=== PATIENT | female | born 1950 | race Caucasian/White ===

== ENCOUNTER 2024-01-10 12:53 | Outpatient (RCR) | payer MEDICARE, OTHER, SELFPAY | END 2024-01-10 23:59 | disposition home or self-care (01) | LOC: RPT 12:53 | PROVIDERS: ATTENDING PHYSICIAN Internal Medicine Geriatric Medicine | DX: I97.2 Postmastectomy lymphedema syndrome (principal); M25.612 Stiffness of left shoulder, not elsewhere classified; Z73.6 Limitation of activities due to disability; C50.912 Malignant neoplasm of unspecified site of left female breast | CPT/HCPCS: 97140; 97530 ==

== ENCOUNTER → 2024-01-18 12:18 | Outpatient (REF) | payer MEDICARE, OTHER, SELFPAY | LOC: RAD 12:18 | PROVIDERS: ATTENDING PHYSICIAN Internal Medicine Geriatric Medicine | DX: M25.572 Pain in left ankle and joints of left foot (principal) | CPT/HCPCS: 73630 ==

== ENCOUNTER 2024-02-04 14:40 | Outpatient (RCR) | payer MEDICARE, OTHER, SELFPAY | END 2024-02-04 23:59 | disposition home or self-care (01) | LOC: RPT 14:40 | PROVIDERS: ATTENDING PHYSICIAN Internal Medicine Geriatric Medicine | DX: I97.2 Postmastectomy lymphedema syndrome (principal); M25.612 Stiffness of left shoulder, not elsewhere classified; C50.912 Malignant neoplasm of unspecified site of left female breast; C79.51 Secondary malignant neoplasm of bone; Z73.6 Limitation of activities due to disability | CPT/HCPCS: 97140; 97530 ==

== ENCOUNTER 2024-03-17 15:14 | Outpatient (RCR) | payer MEDICARE, OTHER, SELFPAY | END 2024-03-17 23:59 | disposition home or self-care (01) | LOC: RPT 15:14 | PROVIDERS: ATTENDING PHYSICIAN Internal Medicine Geriatric Medicine | DX: I97.2 Postmastectomy lymphedema syndrome (principal); M25.612 Stiffness of left shoulder, not elsewhere classified; C50.912 Malignant neoplasm of unspecified site of left female breast; C79.51 Secondary malignant neoplasm of bone; R26.81 Unsteadiness on feet; Z73.6 Limitation of activities due to disability; M79.602 Pain in left arm; G62.9 Polyneuropathy, unspecified; L60.5 Yellow nail syndrome | CPT/HCPCS: 97112; 97530 ==

== ENCOUNTER → 2024-03-28 13:58 | Outpatient (REF) | payer MEDICARE, OTHER, SELFPAY | LOC: HWRCS 13:58 | PROVIDERS: ATTENDING PHYSICIAN Internal Medicine Cardiovascular Disease; FAMILY PHYSICIAN Internal Medicine Geriatric Medicine | DX: I25.10 Atherosclerotic heart disease of native coronary artery without angina pectoris (principal) | CPT/HCPCS: 93306 ==

== ENCOUNTER 2024-04-26 14:52 | Outpatient (RCR) | payer MEDICARE, OTHER, SELFPAY | END 2024-04-26 23:59 | disposition home or self-care (01) | LOC: RPT 14:52 | PROVIDERS: ATTENDING PHYSICIAN Internal Medicine Geriatric Medicine | DX: I97.2 Postmastectomy lymphedema syndrome (principal); M25.612 Stiffness of left shoulder, not elsewhere classified; C50.912 Malignant neoplasm of unspecified site of left female breast; C79.51 Secondary malignant neoplasm of bone; Z73.6 Limitation of activities due to disability | CPT/HCPCS: 97112; 97140; 97530 ==

== ENCOUNTER 2024-05-26 13:52 | Outpatient (RCR) | payer MEDICARE, OTHER, SELFPAY | END 2024-05-26 23:59 | disposition home or self-care (01) | LOC: RPT 13:52 | PROVIDERS: ATTENDING PHYSICIAN Internal Medicine Geriatric Medicine | DX: I97.2 Postmastectomy lymphedema syndrome (principal); M25.612 Stiffness of left shoulder, not elsewhere classified; C50.912 Malignant neoplasm of unspecified site of left female breast; C79.51 Secondary malignant neoplasm of bone; Z73.6 Limitation of activities due to disability | CPT/HCPCS: 97112; 97140; 97530 ==

== ENCOUNTER 2024-05-26 17:59 | Emergency (ER) | payer MEDICARE, OTHER, SELFPAY ==
[2024-05-26 18:02] VITALS: BP 135/74
[2024-05-26 18:43] LABS: % Basophils 0.8 % (0-2); % Eosinophils 8.5 % (0-6); % Immature Granulocytes 0.2 % (0-0.5); % Lymphocytes 23.2 % (20.5-51.1); % Monocytes 8.9 % (1.7-9.3); % Neutrophils 58.4 % (42.2-75.2); Absolute Basophils 0.1 10^3/uL (0-0.2); Absolute Eosinophils 0.7 10^3/uL (0-0.7); Absolute Monocytes 0.8 10^3/uL (0.1-0.6); Absolute Neutrophils 4.9 10^3/uL (1.4-6.5); Hematocrit 36.2 % (37.0-47.0); Hemoglobin 11.7 g/dL (12.0-16.0); Mean Corp Hgb Conc. 32.3 g/dL (33.0-37.0); Mean Corpuscular Hgb 29.3 pg (27.0-31.0); Mean Corpuscular Volume 90.5 fL (81.0-99.0); Mean Platelet Volume 9.6 fL (7.4-10.4); Nucleated Red Blood Cells % 0.2 %; Platelet Count 602 10^3/uL (130-400); Red Cell Dist. Width 17.8 % (11.5-14.5); White Blood Cell Count 8.5 10^3/uL (4.8-10.8)
[2024-05-26 18:44] LABS: ALT (SGPT) 16 U/L (0-35); AST (SGOT) 24 U/L (14-36); Albumin 4.3 g/dl (3.5-5.0); Alkaline Phosphatase 56 U/L (38-126); Blood Urea Nitrogen 30 mg/dl (7-17); Calcium 9.4 mg/dl (8.4-10.2); Carbon Dioxide 33 mmol/L (22-30); Chloride 100 mmol/L (98-107); Glucose 88 mg/dl (70-99); Potassium 4.2 mmol/L (3.5-5.1); Sodium 138 mmol/L (135-145); Total Bilirubin 0.4 mg/dl (0.2-1.3); Total Protein 7.1 g/dl (6.3-8.2); eGFR 58.75
[2024-05-26 18:52] LABS: Troponin I < 0.012 ng/ml
--- NOTE | 2024-05-26 19:28 | ED.GENMED ---
History of Present Illness
General
Chief Complaint: Eye Problems
Time Seen by Provider: 05/26/24 19:28
History of Present Illness
History of Present Illness:
HPI: Approximately 30 hours ago, the patient had distorted vision when looking to the right side as well as double vision. She seemed to have some trouble walking yesterday as well. This morning, symptoms have resolved and she has not had any
further symptoms. She was encouraged to come to emergency department by her friends. She has a history of metastatic breast cancer and chronically has neuropathic discomfort primarily to the left upper along with tremor. She is on gabapentin and
propranolol which does not help. She has seen Dr. Wayne related to tremor.
EXAM:
GENERAL: Well appearing in no distress
HEENT: Moist oral mucosa
CARDIOVASCULAR: 2 out of 6 systolic murmur, normal heart rate, regular rhythm, No chest wall tenderness
PULMONARY: No respiratory distress, breath sounds are clear and equal
ABDOMEN: Soft with no peritoneal signs, no tenderness
NEUROLOGIC: Excellent strength all extremities, no coordination deficits, there is no disconjugate gaze, there is some tremor to the left upper extremity which is chronic
PSYCHIATRIC: Appropriate mental status, normal insight and judgement
EXTREMITIES: Nontender, some edema to the left upper extremity which is chronic, moves all extremities equally
SKIN: No rash, no lesions
TIME OF INITIAL ENCOUNTER: 8:25 PM
NUMBER AND COMPLEXITY OF PROBLEMS ADDRESSED AT THE ENCOUNTER
� Chronic conditions affecting care: Breast cancer with mets to the lung, asthma, sleep apnea, thrombocytosis
� Acute Exacerbation and/or Progression of Chronic Illness: This is an acute problem
� Differential Diagnosis includes: TIA, intracranial lesion, dysrhythmia, electrolyte abnormality
AMOUNT AND/OR COMPLEXITY OF DATA TO BE REVIEWED AND ANALYZED
� I performed an independent evaluation of and my interpretation is:
EKG: Sinus 75, left axis deviation, RSR' pattern new from 2004
CT: I personally reviewed CT imaging and agree with radiologist interpretation there is no acute abnormality
X-rays:
Laboratory Studies: White count 8.5, hemoglobin slight low 11.7, platelets 602, bicarb 33, BUN 30, troponin negative
Other:
� Review of other/old records: Old records show that the patient has treated here with physical therapy further postmastectomy lymphedema syndrome
� Clinical information was obtained by an independent historian: I spoke to the at bedside
� Prescriptions/Medications Considered but not given:
� Further testing considered but not performed:
RISK OF COMPLICATIONS AND/OR MORBIDITY OR MORTALITY OF PATIENT MANAGEMENT
� Social determinants of health affecting care: Lives at home
� Discussion with other providers:
� Escalation of care including admission/observation vs risk of discharge considered: Unclear etiology of patient's distorted vision yesterday. Currently there is no disconjugate gaze. She has a normal neurologic examination
with exception of chronic tremor to the left upper extremity. I offered and considered keeping her here in the hospital for further evaluation however she adamantly prefers going home which I feel is reasonable. She already takes aspirin.
Past History
Past History
ED Past Medical History: Cancer (Breast) and HTN
Social History
Tobacco: Non-smoker
Alcohol: None
Phy Exam
Physical Exam
Physical Exam:
See HPI
Course
Orders/Labs/Results
Orders:
Orders
05/26/24 18:06
ECG [Electrocardiogram (*1)] Urgent
Reason for Study: Vertigo / Dizzy
CT Head W/o Iv Contrast Urgent
Comment:
Reason For Exam: double vision
EKG- Treatment ONCE
05/26/24 18:13
Complete Blood Count/With Diff Urgent
Comprehensive Metabolic Panel Urgent
Troponin I Urgent
Abnormal Lab Results
05/26/24
18:13
RBC 4.00 L 10^6/uL
(4.20-5.40)
Hgb 11.7 L g/dL
(12.0-16.0)
Hct 36.2 L %
(37.0-47.0)
MCHC 32.3 L g/dL
(33.0-37.0)
RDW 17.8 H %
(11.5-14.5)
Plt Count 602 H 10^3/uL
(130-400)
Absolute Monos (auto) 0.8 H 10^3/uL
(0.1-0.6)
Eosinophils % 8.5 H %
(0-6)
Carbon Dioxide 33 H mmol/L
(22-30)
BUN 30 H mg/dl
(7-17)
05/26/24 18:13
05/26/24 18:13
Vital Signs
Initial and Last Documented VS:
Initial Vital Signs
Temp Pulse Resp BP Pulse Ox
98.3 F 81 20 135/74 99
05/26/24 18:02 05/26/24 18:02 05/26/24 18:02 05/26/24 18:02 05/26/24 18:02
Last Documented Vital Signs
Temp Pulse Resp BP Pulse Ox
98.3 F 73 16 130/74 99
05/26/24 18:02 05/26/24 20:02 05/26/24 20:02 05/26/24 20:00 05/26/24 20:02
*Critical Care Note
Total Time (30-74mins, 75-104mins- exclusive of procedures): Not Applicable
ED Attending Note
-
Portions of this chart may have been created with voice recognition software.� Occasional wrong word or��sound alike� substitutions may have occurred due to the inherent limitations of voice recognition software.
Discharge Plan
Departure
Prescriptions:
No Action
cephalexin 500 MG capsule
500 mg PO QID Qty: 28 0RF
Referrals:
Dimitrios Brasher MD [Family Provider] -
Interventions
Interventions:
*Risk Screen - Suicide Last Done: 05/26/24 18:02
*General Assessment Last Done: 05/26/24 18:02
*Neglect/Abuse Screening Last Done: 05/26/24 18:02
ED- Fall Risk Assessment Last Done: 05/26/24 20:03
*ED COVID-19 Vaccine History Last Done: 05/26/24 20:03
Discharge Date and Time
Print Language: PALAUAN
[2024-05-26 20:00] VITALS: BP 130/74
== END 2024-05-26 20:57 | disposition home or self-care (01) ==
LOC: EMR 17:59
PROVIDERS: Emergency Medicine; EMERGENCY PHYSICIAN Emergency Medicine; FAMILY PHYSICIAN Internal Medicine Geriatric Medicine
DX: H53.8 Other visual disturbances (principal); H53.2 Diplopia; R26.2 Difficulty in walking, not elsewhere classified; R42 Dizziness and giddiness; R25.1 Tremor, unspecified; R01.1 Cardiac murmur, unspecified; J45.909 Unspecified asthma, uncomplicated; G47.30 Sleep apnea, unspecified; I10 Essential (primary) hypertension; D75.839 Thrombocytosis, unspecified; C78.00 Secondary malignant neoplasm of unspecified lung; Z85.3 Personal history of malignant neoplasm of breast; Z79.899 Other long term (current) drug therapy; Z79.82 Long term (current) use of aspirin; Z88.8 Allergy status to other drugs, medicaments and biological substances
CPT/HCPCS: 99284; 70450; 80053; 84484; 85025; 93005

== ENCOUNTER 2024-06-09 15:25 | Outpatient (RCR) | payer MEDICARE, OTHER, SELFPAY | END 2024-06-09 23:59 | disposition home or self-care (01) | LOC: RPT 15:25 | PROVIDERS: ATTENDING PHYSICIAN Internal Medicine Geriatric Medicine | DX: I97.2 Postmastectomy lymphedema syndrome (principal); M25.612 Stiffness of left shoulder, not elsewhere classified; M26.81 Anterior soft tissue impingement; C50.912 Malignant neoplasm of unspecified site of left female breast; M79.602 Pain in left arm; C79.51 Secondary malignant neoplasm of bone; Z73.6 Limitation of activities due to disability; G62.9 Polyneuropathy, unspecified; L90.5 Scar conditions and fibrosis of skin | CPT/HCPCS: 97140; 97530 ==

== ENCOUNTER 2024-07-21 14:46 | Outpatient (RCR) | payer MEDICARE, OTHER, SELFPAY | END 2024-07-21 23:59 | disposition home or self-care (01) | LOC: RPT 14:46 | PROVIDERS: ATTENDING PHYSICIAN Internal Medicine Geriatric Medicine | DX: I97.2 Postmastectomy lymphedema syndrome (principal); M25.612 Stiffness of left shoulder, not elsewhere classified; C50.912 Malignant neoplasm of unspecified site of left female breast; C79.51 Secondary malignant neoplasm of bone; Z73.6 Limitation of activities due to disability; R26.81 Unsteadiness on feet; M79.602 Pain in left arm; G62.9 Polyneuropathy, unspecified; L90.5 Scar conditions and fibrosis of skin | CPT/HCPCS: 97140; 97530 ==

== ENCOUNTER 2024-08-01 19:24 | Inpatient (IN) | payer MEDICARE, OTHER, SELFPAY ==
[2024-08-01] VITALS (8 sets, daily range): BP systolic 105–140; BP diastolic 59–103; BMI 29.4
[2024-08-01 13:09] LABS: Glucose - Point of Care 116 mg/dl (70-99)
--- NOTE | 2024-08-01 13:36 | ED.CVA ---
History of Present Illness
General
Chief Complaint: CVA/TIA Symptoms
Time Seen by Provider: 08/01/24 13:13
Onset of Stroke Symptoms
Onset of symptoms known: Yes
Date of onset of symptoms: 08/01/24
History of Present Illness
History of Present Illness:
Patient is a 73-year-old woman with history of metastatic breast cancer with mets to the bone and liver, hypertension, hyperlipidemia presenting to the emergency department with dizziness and vision problems. Patient states that she woke up this
morning off balance. This happened to her before which usually resolves with Dramamine. However today it persisted. She then had another vision and some slurring of her speech. She initially told nursing developed she is having difficulty with
her words however denied that for me. She states that she has had doubel vision before as well as neuropathy in extremities for several had an MRI done. She denies any numbness tingling that is new. No weakness yet. She does take a daily pill
for chemotherapy.
Past History
Past History
ED Past Medical History: Cancer (Breast) and HTN
Social History
Tobacco: Non-smoker
Alcohol: None
Phy Exam
Physical Exam
Physical Exam:
GENERAL: in no acute distress
HEENT: normocephalic, extraocular movements intact, moist oral mucosa
NECK: normal inspection
RESPIRATORY: no respiratory distress, clear to auscultation bilaterally
CARDIOVASCULAR: regular rate and rhythm
ABDOMEN/: soft, non-distended, non-tender to palpation, no rebound or guarding
EXTREMITIES: non-tender, no edema/swelling
NEUROLOGIC: alert and oriented x 3, cranial nerves II-XII intact, right upper extremity strength 5/5, left upper extremity strength 5/5, right lower extremity strength 5/5, left lower extremity strength 5/5, normal sensation to light touch
(decreased to the left arm secondary to lymphedema which is chronic), normal [id number] and [id number], gait not tested formally
SKIN: warm
NIH Stroke Score
Level of Consciousness: 0 - Alert
LOC questions: 0-Answers both correctly
LOC Commands: 0-Performs both correctly
Best Gaze: 0-Normal
Visual Nielson: 0=Normal, no visual loss
Facial palsy: 0=Normal, symmetrical
Motor - Right Arm: 0=No drift 10 seconds
Motor - Left Arm: 0=No drift 10 seconds
Motor - Right Le-No drift 5 seconds
Motor - Left Le-No drift 5 seconds
Limb Ataxia: 0-Absent
Sensation: 0-Normal
Best Language: 0-No aphasia
Dysarthria: 0-Normal
Extinction and Inattention: 0-No abnormality
Total Score:: 0
Course
Orders/Labs/Results
Orders:
Orders
08/01/24 13:30
Electrocardiogram (*1) Stat
Reason for Study: Other
Other Reason for Exam: neuro symptoms
CT Head W/o Iv Contrast Urgent
Comment:
Reason For Exam: ataxia, dysarthria
EKG- Treatment ONCE
08/01/24 13:51
Complete Blood Count/With Diff Urgent
Comprehensive Metabolic Panel Urgent
Abnormal Lab Results
08/01/24 08/01/24
13:08 13:51
RBC 3.70 L 10^6/uL
(4.20-5.40)
Hgb 11.9 L g/dL
(12.0-16.0)
Hct 34.2 L %
(37.0-47.0)
MCH 32.2 H pg
(27.0-31.0)
RDW 14.9 H %
(11.5-14.5)
Absolute Monos (auto) 0.7 H 10^3/uL
(0.1-0.6)
Monocytes % 9.4 H %
(1.7-9.3)
Eosinophils % 6.1 H %
(0-6)
Carbon Dioxide 33 H mmol/L
(22-30)
BUN 33 H mg/dl
(7-17)
POC Glucose 116 H mg/dl
(70-99)
08/01/24 13:51
08/01/24 13:51
Vital Signs
Initial and Last Documented VS:
Initial Vital Signs
Temp Pulse Resp BP Pulse Ox
98.3 F 77 16 134/103 97
08/01/24 13:06 08/01/24 13:06 08/01/24 13:06 08/01/24 13:06 08/01/24 13:06
Last Documented Vital Signs
Temp Pulse Resp BP Pulse Ox
98.3 F 71 20 126/67 93
08/01/24 13:06 08/01/24 16:45 08/01/24 16:45 08/01/24 16:00 08/01/24 16:45
MDM/Problems Addressed
Differential Diagnosis Includes:
Patient is a 73-year-old woman with history of metastatic breast cancer, hypertension, hyperlipidemia presenting to the emergency department dizziness and vision changes and concerns rate. Started when she woke up this morning.. Last known normal
was yesterday evening. Vitals are unremarkable and exam does not show any neurodeficits. Differential is broad but considered as CVA versus electrolyte derangement versus worsening metastases. Will obtain blood work EKG and CT scan. She will
need admission for further imaging and testing.
*Critical Care Note
Total Time (30-74mins, 75-104mins- exclusive of procedures): Not Applicable
Update Note
Update Note:
On reevaluation patient blood work unremarkable. CT scan of the head per my interpretation with no acute abnormality. Discussed with hospitalist who accepted patient to their service.
ED Attending Note
-
Portions of this chart may have been created with voice recognition software.� Occasional wrong word or��sound alike� substitutions may have occurred due to the inherent limitations of voice recognition software.
Discharge Plan
Departure
Patient Disposition: Admit
Date of Disposition: 08/01/24
Time of Disposition: 16:54
Presentation/result/management discussed w/ accepting MD/DO: Hospitalist
Discharge Problem:
Stroke-like symptoms
Prescriptions:
No Action
hydroxyurea 500 mg capsule
500 mg PO DAILY
clonazepam 0.5 mg tablet
0.5 mg PO DAILYPRN PRN (Reason: anxiety)
Patient Comments:
08/01/2024: last filled 06/02/24, 30 tabs for 30 days from [email or web address]
lidocaine-prilocaine 2.5-2.5 % cream
1 applic topical DAILYPRN PRN (Reason: prior to port access)
gabapentin 300 mg capsule
900 mg PO BID
zolpidem 12.5 mg tablet,ext release multiphase
12.5 mg PO HS
Patient Comments:
08/01/2024: last filled 07/13/24, 30 tabs for 30 days from [email or web address]
desvenlafaxine succinate 100 mg tablet extended release 24 hr
100 mg PO DAILY
Orserdu 345 mg tablet
345 mg PO QPM
propranolol 80 mg capsule,extended release 24 hr
80 mg PO DAILY
atorvastatin 20 mg tablet
20 mg PO DAILY
prochlorperazine maleate 5 mg tablet
5 mg PO Q6HPRN PRN (Reason: nausea)
Theragen Tablet
1 tab PO DAILY
aspirin 81 mg Tablet,Delayed Release (Dr/Ec)
81 mg PO DAILY
cevimeline 30 mg capsule
30 mg PO DAILY
hydrochlorothiazide 25 mg tablet
25 mg PO DAILY
azelastine 137 mcg (0.1 %) [place],Non-Aerosol
1 spray INTRANASAL DAILYPRN PRN (Reason: congestion)
albuterol sulfate 90 mcg/actuation Hfa Aerosol Inhaler
2 puff INHALATION R Q4HPRN PRN (Reason: sob/wheezing)
fluticasone propionate [Flonase] 50 mcg/actuation [place],Suspension
1 spray INTRANASAL DAILYPRN PRN (Reason: allergies/congestion)
simethicone 80 mg Tablet,Chewable
80 mg PO DAILYPRN PRN (Reason: gas)
bupropion HCl 300 mg Tablet Extended Release 24 Hr
300 mg PO DAILY
fenofibrate nanocrystallized 48 mg tablet
48 mg PO DAILY
fluticasone propion-salmeterol [Advair HFA] 115-21 mcg/actuation Hfa Aerosol Inhaler
2 puff INHALATION R DAILY
cholecalciferol (vitamin D3) 50 mcg (2,000 unit) Tablet
50 mcg PO DAILY
Referrals:
Dimitrios Brasher MD [Family Provider] -
Interventions
Interventions:
*Risk Screen - Suicide Last Done: 08/01/24 14:13
*General Assessment Last Done: 08/01/24 14:13
*Neglect/Abuse Screening Last Done: 08/01/24 14:13
*ED COVID-19 Vaccine History Last Done: 08/01/24 14:13
ED- Pulmonary Assessment Last Done: 08/01/24 13:26
ED- Neurological Assessment Last Done: 08/01/24 13:30
ED- Cardiac Assessment Last Done: 08/01/24 13:26
Discharge Date and Time
Print Language: NICARAGUAN
[2024-08-01 14:13] LABS: % Basophils 0.5 % (0-2); % Eosinophils 6.1 % (0-6); % Immature Granulocytes 0.3 % (0-0.5); % Lymphocytes 25.7 % (20.5-51.1); % Monocytes 9.4 % (1.7-9.3); Absolute Eosinophils 0.5 10^3/uL (0-0.7); Absolute Monocytes 0.7 10^3/uL (0.1-0.6); Absolute Neutrophils 4.6 10^3/uL (1.4-6.5); Hematocrit 34.2 % (37.0-47.0); Hemoglobin 11.9 g/dL (12.0-16.0); Mean Corp Hgb Conc. 34.8 g/dL (33.0-37.0); Mean Corpuscular Hgb 32.2 pg (27.0-31.0); Mean Corpuscular Volume 92.4 fL (81.0-99.0); Mean Platelet Volume 9.5 fL (7.4-10.4); Nucleated Red Blood Cells % 0 %; Platelet Count 333 10^3/uL (130-400); Red Cell Dist. Width 14.9 % (11.5-14.5); White Blood Cell Count 7.9 10^3/uL (4.8-10.8)
[2024-08-01 14:15] LABS: ALT (SGPT) 18 U/L (0-35); AST (SGOT) 24 U/L (14-36); Albumin 3.9 g/dl (3.5-5.0); Alkaline Phosphatase 53 U/L (38-126); Blood Urea Nitrogen 33 mg/dl (7-17); Calcium 9.2 mg/dl (8.4-10.2); Carbon Dioxide 33 mmol/L (22-30); Chloride 98 mmol/L (98-107); Glucose 99 mg/dl (70-99); Sodium 139 mmol/L (135-145); Total Bilirubin 0.6 mg/dl (0.2-1.3); Total Protein 6.4 g/dl (6.3-8.2); eGFR > 60.00
--- NOTE | 2024-08-01 18:04 | HPS.HSE ---
Family Physician
-
Family Physician: Dimitrios Brasher
Chief Complaint
-
Slurred speech, dizziness, vision problems.
History of Present Illness
73-year-old woman (with history of metastatic breast cancer with mets to the bone and liver) hypertension, hyperlipidemia comes in to the emergency department with dizziness and vision problems. She states that she woke up this morning and was off
balance. This has happened to her before, but usually resolves with Dramamine. Today it persisted. She then had another vision change and some slurring of her speech. When she first came in she was having difficulty with her words however she
denied that when speaking to ER doc. She states that she has had double vision before as well as neuropathy in her extremities. She denies any new numbness, tingling or weakness. She does take a daily pill for chemotherapy. She felt comfortable
at the time of my interview and was back to her baseline.
Medical History
Past Medical History
Past Medical History: Reports Other
Additional Past Medical History:
Cancer (Breast)
HTN
Malig neop fem breast unsp
Essential (primary) hypertension
Pure hypercholesterolemia
Extrinsic asthma
Depression
Palpitations
Hyperlipidemia
PNA- MRSA at 2004
breast biopsy left
Past Surgical History: Reports Other
Additional Past Surgical History:
See above
Social History
Tobacco: Non-smoker
Alcohol: None
Drug: None
Family History
Family History: Not pertinent
Allergies / Home Medications
Allergies reflects when Allergies were last updated in [facility].
Home Medications with original date entered in [facility]
Allergy/Medication List:
Allergies
Allergy/AdvReac Type Severity Reaction Status Date / Time
iodine Allergy Unknown Verified 08/01/24 13:05
NOT.[id number] - Not Allergy Unknown Uncoded 08/01/24 13:05
Converted 85. See Text.
Home Medications
albuterol sulfate 90 mcg/actuation aerosol inhaler 2 puff inhalation R Q4HPRN PRN sob/wheezing 08/01/24
aspirin 81 mg tablet,delayed release 81 mg PO DAILY 08/01/24
atorvastatin 20 mg tablet 20 mg PO DAILY 08/01/24
azelastine 137 mcg (0.1 %) nasal spray 1 spray intranasal DAILYPRN PRN congestion 08/01/24
bupropion HCl 300 mg 24 hr tablet, extended release 300 mg PO DAILY 08/01/24
cevimeline 30 mg capsule 30 mg PO DAILY 08/01/24
cholecalciferol (vitamin D3) 50 mcg (2,000 unit) tablet 50 mcg PO DAILY 08/01/24
clonazepam 0.5 mg tablet 0.5 mg PO DAILYPRN PRN anxiety 08/01/24
desvenlafaxine succinate 100 mg tablet,extended release 24 hr 100 mg PO DAILY 08/01/24
elacestrant 345 mg tablet (Orserdu) 345 mg PO QPM 08/01/24
fenofibrate nanocrystallized 48 mg tablet 48 mg PO DAILY 08/01/24
fluticasone propionate 115 mcg-salmeterol 21 mcg/actuation HFA inhaler (Advair HFA) 2 puff inhalation R DAILY 08/01/24
fluticasone propionate 50 mcg/actuation nasal spray,suspension 1 spray intranasal DAILYPRN PRN allergies/congestion 08/01/24
gabapentin 300 mg capsule 900 mg PO BID 08/01/24
hydrochlorothiazide 25 mg tablet 25 mg PO DAILY 08/01/24
hydroxyurea 500 mg capsule 500 mg PO DAILY 08/01/24
lidocaine-prilocaine 2.5 %-2.5 % topical cream 1 applic topical DAILYPRN PRN prior to port access 08/01/24
prochlorperazine maleate 5 mg tablet 5 mg PO Q6HPRN PRN nausea 08/01/24
propranolol 80 mg capsule,24 hr,extended release 80 mg PO DAILY 08/01/24
simethicone 80 mg chewable tablet 80 mg PO DAILYPRN PRN gas 08/01/24
therapeutic multivitamin 1 tab PO DAILY 08/01/24
zolpidem 12.5 mg tablet,extended release,multiphase 12.5 mg PO HS 08/01/24
Review of Systems
-
History Source: Patient
A 12 point ROS was completed and negative except as noted: Yes
Physical Exam
Vital Signs
Vital Signs
Temp Pulse Resp BP Pulse Ox
98.3 F 71 20 126/67 93
08/01/24 13:06 08/01/24 16:45 08/01/24 16:45 08/01/24 16:00 08/01/24 16:45
Physical Exam
General: Well Developed, Well Nourished, No Apparent Distress, Comfortable and Conversant
HEENT: NormoCephalic, Moist mucous membranes and Atraumatic
Respiratory: Clear
Cardiac: S1/S2, Regular Rhythm and Murmur
GI: Soft, Non Tender and Non Distended
Musculoskeletal: No Clubbing, No Cyanosis and No Edema
Skin: Warm and Dry
Neuro: Awake, Alert, Oriented, AO x 3, No Motor Deficits and Nonfocal/grossly intact
Psych: Calm
Laboratory Results
-
08/01/24 13:51
08/01/24 13:51
Laboratory Results
Total Bilirubin 0.6 mg/dl (0.2-1.3) 08/01/24 13:51
AST 24 U/L (14-36) 08/01/24 13:51
ALT 18 U/L (0-35) 08/01/24 13:51
Alkaline Phosphatase 53 U/L (38-126) 08/01/24 13:51
Data Reviewed
-
Lab Data: Labs Reviewed by me
Impression/Plan
-
IMPRESSION:
73 woman with changes in mental status, now back at baseline. Significant findings:
CT: Mild age-related parenchymal atrophy. No intra- or extra-axial mass, hemorrhage, or fluid collection. No areas of abnormal mass effect or attenuation are noted. The imaged paranasal sinuses and mastoid air cells are clear. Bilateral ocular
lens implants.
ECG: NSR
BUN/Creat 33/0.9
PLAN:
1. Change of mental status - CVA workup per protocol
2. BUN/Creat > 20 - IV hydration
Recheck in am
3. Loud heart murmurs - Check echo
4. Complex PMH - continue home meds
Full code
VCD for DVTp
[2024-08-01] MEDS: NSS 1000 IV (21:29)
[2024-08-01] MEDS: NEURONTIN 900 MG PO (21:29)
--- NOTE | 2024-08-01 23:39 | PTCARENOTE ---
Received patient from ED via stretcher; Patient ambulated to bed with a steady gate. Telemetry orders> NSR w/ prolong QT on monitor (as noted on EKG in the ED) afebrile, HR77, RR18, BP140/77, pox 95% room air. No c/o pain. RSubq Port accessed in ED.
NSS infusing at 125ml/hr per order.
NIH score 0. Swallow eval- passed. Patient c/o neuropathy in B/L LEs, LUE paresthesia- PMH of left breast CA w/ lumpectomy, chemo, XRT. Patient is followed by Yassine Dobbs. PMH and medications reviewed by this RN and patient. Patient's chemo pill sent
to pharmacy to be profiled. Chemo precautions in place. Plan of care discussed. Patient oriented to room. Call granado within place.
[2024-08-02] VITALS (8 sets, daily range): BP systolic 115–128; BP diastolic 69–90; PULSE 70; BMI 29.4
[2024-08-02] MEDS: NSS 1000 IV (05:36)
[2024-08-02 06:44] LABS: Hematocrit 33.6 % (37.0-47.0); Hemoglobin 11.5 g/dL (12.0-16.0); Mean Corp Hgb Conc. 34.2 g/dL (33.0-37.0); Mean Corpuscular Hgb 32.9 pg (27.0-31.0); Mean Platelet Volume 9.7 fL (7.4-10.4); Platelet Count 282 10^3/uL (130-400); Red Cell Dist. Width 14.9 % (11.5-14.5); White Blood Cell Count 6.7 10^3/uL (4.8-10.8)
[2024-08-02 07:27] LABS: Blood Urea Nitrogen 31 mg/dl (7-17); Calcium 8.4 mg/dl (8.4-10.2); Carbon Dioxide 27 mmol/L (22-30); Chloride 105 mmol/L (98-107); Estimated Creatinine Clearance 60 ml/min; Glucose 104 mg/dl (70-99); HDL Cholesterol 44 mg/dl; LDL Cholesterol, Calculated 74 mg/dl; Potassium 3.8 mmol/L (3.5-5.1); Sodium 139 mmol/L (135-145); Total Cholesterol 148 mg/dl (50-199); Triglyceride 153 mg/dl (10-149); Very Low Density Lipoprotein 30 mg/dl (0-30); eGFR > 60.00
[2024-08-02] MEDS: ADVAIR HFA 115/21 MCG INHALER 2 PUFF INH (07:41)
[2024-08-02] MEDS: INDERAL LA 80 MG PO (08:13)
[2024-08-02] MEDS: ASPIR LOW (ENTERIC COATED) 81 MG PO (08:14)
[2024-08-02] MEDS: ORETIC 25 MG PO (08:14)
[2024-08-02] MEDS: HYDREA 500 MG PO (08:14)
[2024-08-02] MEDS: TRICOR 48 MG PO (08:14)
[2024-08-02] MEDS: THERAGRAN 1 TABLET PO (08:14)
[2024-08-02] MEDS: WELLBUTRIN XL (24 hour extended release) 150 MG PO (08:14)
[2024-08-02] MEDS: VITAMIN D3 (cholecalciferol) 50 MCG PO (08:14)
[2024-08-02] MEDS: NEURONTIN 900 MG PO ×2 (08:14→20:42)
[2024-08-02] MEDS: LIPITOR 20 MG PO (08:14)
[2024-08-02] MEDS: PRISTIQ 100 MG PO (08:14)
--- NOTE | 2024-08-02 10:05 | W.PN.HOSP.TC ---
Today's Communication/Plan
-
f/w neurology recommendations
Brain MRI, give sedative prior
No need for more IVF
PT/ OT
Assessment / Plan
Assessment / Plan
Physical Exam
General: Well Developed, Well Nourished, No Apparent Distress, Comfortable and Conversant
HEENT: NormoCephalic, Moist mucous membranes and Atraumatic
Respiratory: Clear, right sided chest wall port
Cardiac: S1/S2,+ murmur
GI: Soft, Non Tender and Non Distended
Musculoskeletal: No Clubbing, No Cyanosis and No Edema
Skin: Warm and Dry
Neuro: Awake, Alert, Oriented, AO x 3, No Motor Deficits and Nonfocal/grossly intact. Gait is normal
Psych: Calm
73 woman with changes in mental status, now back at baseline. Significant findings:
CT: Mild age-related parenchymal atrophy. No intra- or extra-axial mass, hemorrhage, or fluid collection. No areas of abnormal mass effect or attenuation are noted. The imaged paranasal sinuses and mastoid air cells are clear. Bilateral ocular
lens implants.
ECG: NSR
BUN/Creat 33/0.9
#Change of mental status - CVA workup per protocol. DDX stroke, vertigo, metolic, orthostatic
seems to resolve now
No longer dizzy
Would like benzo before MRI
She had dizzy episodes in the past
Will f/w Brain MRI, check orthostatic BP,
S/p IVF
No fever, no headache, no leukocytosis
Appreciate neurology help
# Mild dehydration with BUN/Creat > 20 - IV hydration
Resolved.
# Valvular heart disease
Echocardiogram showed LVEF 60 to 65%, mild aortic stenosis, moderate to severe mitral regurgitation, mild to moderate aortic stenosis, no significant change from previous echo in February 2024.
She denies chest pain or shortness of breath. No hypoxia
Total time spent to see the patient, examine the patient on the floor, review data and lab results, discuss the treatment plan with the patient, nursing staff around 55 minutes
# History of breast cancer, she follows with [facility].
Full code
Total time spent to see the patient, examine the patient on the floor, review data and lab results, discuss the treatment plan with the patient, nursing staff around 55 minutes
Anticipated Discharge: 24 - 48 hours
Subjective/Interval History
-
Date of Service: August 02, 2024
Objective Data
-
Labs:
Laboratory Results
08/02/24
06:10
WBC 6.7
Hgb 11.5 L
Hct 33.6 L
Plt Count 282
Sodium 139
Potassium 3.8
Chloride 105
Carbon Dioxide 27
BUN 31 H
Creatinine 0.8
Glucose 104 H
Calcium 8.4
Vital Signs:
Vital Signs
Temp Pulse Resp BP Pulse Ox
97.9 F 68 15 115/79 98
08/02/24 08:00 08/02/24 08:13 08/02/24 08:00 08/02/24 08:13 08/02/24 08:00
I&O
08/01/24 08/02/24 08/03/24
06:59 06:59 06:59
Intake Total 480 / 480
Balance 480 / 480
--- NOTE | 2024-08-02 11:00 | CM ---
Reviewed the chart notes and spoke with the patient at the bedside. The patient resides with her sister in a two story home with one step to enter. The patient reports only DME in home is a shower grab bar. The patient has had VN in the past, but
could not recall the name of the agency. No SNF. The patient confirmed her pharmacy of choice is the [facility]. CM continues to be available to patient/family and is monitoring medical plan for needs at discharge.
Plan: Discharge plans will depend on the patient's progress.
--- NOTE | 2024-08-02 11:02 | PTOTSP ---
ST Acute Care Evaluations
Pt currently presents with clinical signs of a functional oropharyngeal and esophageal swallow. Pt did not display any overt s/s of penetration or aspiration at bedside. Will f/u 1x to ensure pt is safely tolerating current diet consistencies and PO
medications.
Pt is also presenting with clinical signs of a slight/mild cognitive linguistic impairment with minimal deficits in the areas of working memory and short term memory. It is important to note that the pt's performance was negatively impacted by pt's
frequent self-correction, and thus the pt's skills may be closer to within normal limits. Will f/u re: results of MRI of brain to determine if her current level of function is due to an acute infarction vs slight progressive decline consistent with
aging.
Recommendations:
- Continue with regular solids, thin liquids, meds as tolerated.
- Aspiration & GERD precautions: HOB upright during all PO intake and for at least 60 minutes after PO intake; eat/drink slowly; overchew foods.
- SCIENCE MANAGER to f/u re: diet consistency and PO med tolerance.
- SCIENCE MANAGER to f/u re: cognitive linguistic deficits and recommendations for tx.
[2024-08-02] MEDS: NSS IV (13:50)
[2024-08-02] MEDS: KLONOPIN 0.5 MG PO (14:39)
[2024-08-02] MEDS: NON-FORMULARY ITEM 345 MG PO (18:38)
[2024-08-03 03:14] VITALS: BP 102/78
[2024-08-03 07:00] VITALS: BP 124/72
[2024-08-03] MEDS: ADVAIR HFA 115/21 MCG INHALER 2 PUFF INH (07:52)
[2024-08-03] MEDS: PRISTIQ 100 MG PO (09:10)
[2024-08-03] MEDS: ORETIC 25 MG PO (09:11)
[2024-08-03] MEDS: ASPIR LOW (ENTERIC COATED) 81 MG PO (09:11)
[2024-08-03] MEDS: NEURONTIN 900 MG PO (09:11)
[2024-08-03] MEDS: WELLBUTRIN XL (24 hour extended release) 150 MG PO (09:11)
[2024-08-03] MEDS: TRICOR 48 MG PO (09:11)
[2024-08-03] MEDS: INDERAL LA 80 MG PO (09:11)
[2024-08-03] MEDS: THERAGRAN 1 TABLET PO (09:12)
[2024-08-03] MEDS: LIPITOR 20 MG PO (09:12)
[2024-08-03] MEDS: VITAMIN D3 (cholecalciferol) 50 MCG PO (09:12)
[2024-08-03] MEDS: HYDREA 500 MG PO (09:12)
--- NOTE | 2024-08-03 10:40 | W.PN.HOSP.TC ---
Today's Communication/Plan
-
dc
Assessment / Plan
Assessment / Plan
Physical Exam
General: Well Developed, Well Nourished, No Apparent Distress, Comfortable and Conversant
HEENT: NormoCephalic, Moist mucous membranes and Atraumatic
Respiratory: Clear, right sided chest wall port
Cardiac: S1/S2,+ murmur
GI: Soft, Non Tender and Non Distended
Musculoskeletal: No Clubbing, No Cyanosis and No Edema
Skin: Warm and Dry
Neuro: Awake, Alert, Oriented, AO x 3, No Motor Deficits and Nonfocal/grossly intact. Gait is normal
Psych: Calm
73 woman with changes in mental status, now back at baseline. Significant findings:
CT: Mild age-related parenchymal atrophy. No intra- or extra-axial mass, hemorrhage, or fluid collection. No areas of abnormal mass effect or attenuation are noted. The imaged paranasal sinuses and mastoid air cells are clear. Bilateral ocular
lens implants.
ECG: NSR
BUN/Creat 33/0.9
#Change of mental status - CVA workup per protocol. DDX stroke, vertigo, metolic, orthostatic
Resolved, likely Benign positional vertigo
No longer dizzy
MRI no stroke, given a copy of it to d/w her oncologist at [facility].
She had dizzy episodes in the past
No orthostatic hypotension
No cardiac arrhythmias on tele.
S/p IVF
No fever, no headache, no leukocytosis
PT, no skilled needs.
# Mild dehydration with BUN/Creat > 20 - IV hydration
Resolved.
# Valvular heart disease
Echocardiogram showed LVEF 60 to 65%, mild aortic stenosis, moderate to severe mitral regurgitation, mild to moderate aortic stenosis, no significant change from previous echo in February 2024.
She denies chest pain or shortness of breath. No hypoxia
# History of breast cancer, she follows with [facility].
Full code
Total dc time spent to see the patient, examine the patient on the floor, review data and lab results, discuss the discharge plan with the patient, nursing staff around 57 minutes
Anticipated Discharge: Today
Subjective/Interval History
-
Date of Service: August 03, 2024
She feels well
ready to go home
not dizzy
no chest pain
Objective Data
-
Vital Signs:
Vital Signs
Temp Pulse Resp BP Pulse Ox
98.0 F 70 16 124/72 96
08/03/24 07:00 08/03/24 07:56 08/03/24 07:56 08/03/24 09:11 08/03/24 07:56
I&O
08/02/24 08/03/24 08/04/24
06:59 06:59 06:59
Intake Total 480 / 480 1440 / 1440
Balance 480 / 480 1440 / 1440
--- NOTE | 2024-08-03 10:44 | W.DCSUMMARY ---
Discharge Summary
Discharge Data
Date of Admission: 08/01/24
Date of Discharge: 08/03/24
-
Pending Results: No
Hospital Course
73 years old female who was admitted with dizziness. Patient was found to have vertigo, possible benign positional vertigo. Imaging studies of the brain did not show acute stroke. Her dizziness had resolved. She was able to ambulate and she
tolerated diet without problems. She did not have orthostatic hypotension. Carotid ultrasound did not show significant stenosis. Echocardiogram showed no significant change from previous echocardiogram. She did not have fever or leukocytosis.
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 Patient did not have blurred vision or
headache. She was evaluated by physical therapy, no skilled needs. She remained hemodynamically stable and was discharged in a stable condition.
Discharge Plan
-
Patient Disposition: Home (Routine Discharge)
Discharge Diagnosis/Procedures: Vertigo
Diet: As tolerated
Referrals:
Dimitrios Brasher MD [Family Provider] -
Prescriptions:
Continued
hydroxyurea 500 mg capsule
500 mg PO DAILY
clonazepam 0.5 mg tablet
0.5 mg PO DAILYPRN PRN (Reason: anxiety)
Patient Comments:
08/01/2024: last filled 06/02/24, 30 tabs for 30 days from [facility]
lidocaine-prilocaine 2.5-2.5 % cream
1 applic topical DAILYPRN PRN (Reason: prior to port access)
gabapentin 300 mg capsule
900 mg PO BID
zolpidem 12.5 mg tablet,ext release multiphase
12.5 mg PO HS
Patient Comments:
08/01/2024: last filled 07/13/24, 30 tabs for 30 days from [facility]
desvenlafaxine succinate 100 mg tablet extended release 24 hr
100 mg PO DAILY
Orserdu 345 mg tablet
345 mg PO QPM
propranolol 80 mg capsule,extended release 24 hr
80 mg PO DAILY
atorvastatin 20 mg tablet
20 mg PO DAILY
prochlorperazine maleate 5 mg tablet
5 mg PO Q6HPRN PRN (Reason: nausea)
therapeutic multivitamin Tablet
1 tab PO DAILY
aspirin 81 mg Tablet,Delayed Release (Dr/Ec)
81 mg PO DAILY
cevimeline 30 mg capsule
30 mg PO DAILY
hydrochlorothiazide 25 mg tablet
25 mg PO DAILY
azelastine 137 mcg (0.1 %) [place],Non-Aerosol
1 spray INTRANASAL DAILYPRN PRN (Reason: congestion)
albuterol sulfate 90 mcg/actuation Hfa Aerosol Inhaler
2 puff INHALATION R Q4HPRN PRN (Reason: sob/wheezing)
fluticasone propionate 50 mcg/actuation [place],Suspension
1 spray INTRANASAL DAILYPRN PRN (Reason: allergies/congestion)
simethicone 80 mg Tablet,Chewable
80 mg PO DAILYPRN PRN (Reason: gas)
bupropion HCl 300 mg Tablet Extended Release 24 Hr
300 mg PO DAILY
fenofibrate nanocrystallized 48 mg tablet
48 mg PO DAILY
fluticasone propion-salmeterol [Advair HFA] 115-21 mcg/actuation Hfa Aerosol Inhaler
2 puff INHALATION R DAILY
cholecalciferol (vitamin D3) 50 mcg (2,000 unit) Tablet
50 mcg PO DAILY
Discharge Orders:
Discharge Patient (As Directed); Ordered 08/03/24
Ordered By: Luana Bob
Discharge Date and Time
Print Language: KHMER
[2024-08-03 10:58] VITALS: BP 120/67
--- NOTE | 2024-08-03 11:05 | CM ---
Reviewed the chart notes and spoke with the patient at the bedside. Patient is for discharge today. Patient's spouse will provide transportation home. CM continues to be available to patient/family and is monitoring medical plan for needs at
discharge.
Plan: Discharge to home today. No additional needs identified at this time.
--- NOTE | 2024-08-03 12:10 | CON.NEURO4 ---
Consultation - Neurology 4
-
CONSULTING PHYSICIAN:
REFERRING PHYSICIAN:
DICTATED BY:
DATE/TIME OF REQUEST:
DATE/TIME OF CONSULTATION:
Reason for Consultation: Dizziness
History of Present Illness:
This is a 73 year old (left/right) handed (male/female) who has presented to the hospital with (chief complaint) of dizziness and lightheadedness since April. She gives a history of metastatic breast cancer (with mets to the bone and liver)
hypertension, hyperlipidemia comes in to the emergency department with dizziness and double vision. She states that when she woke up Wednesday, July 27 morning she was lightheaded off balance and had difficulty standing and walking. The symptoms
were resolved with sitting and staying still and worse with standing and moving around. The symptoms have been ongoing over the last few years, but usually resolves with Dramamine. She did have trouble hearing with occasional tinnitus
She then had persistent double vision and slurred speech. When she first came in she was had difficulty with her words however she denied that when speaking to ER doc. She states that she has had double vision before as well as neuropathy in her
extremities. She denies any new numbness, tingling or weakness. She does take a daily pill for chemotherapy. She felt comfortable at the time of my interview and was back to her baseline
Following admission her symptoms have resolved and currently she is asymptomatic
Past Medical History: Hypertension breast cancer
Surgical History: Breast biopsy
Family History: Noncontributory
Social History: Lives at home with her
Allergies: Iodine
Home Medications: See addendum
Review of Symptoms:
Patient denies any fever, headache, chest pain, shortness of breath, GI or symptoms.
�Per the HPI.�All systems are reviewed negative except above.
�
Vital Signs:
The patient has a .
Temp Pulse Resp BP Pulse Ox
36.7 C 74 18 120/67 99
Physical Exam:
The patient is afebrile, heart sounds S1 and S2 are (regular / irregular), and chest is clear to auscultation bilaterally.
- If not clear, describe.
Neurologic Examination:
The patient is awake, alert and oriented x 3. She is able to follow commands and answer questions appropriately. There is no aphasia or dysarthria. On cranial nerve assessment, pupils are 3 mm bilateral, round and reactive to light and
accommodation. Visual macario are full. Extraocular movements are intact. Facial sensations are intact and bilaterally symmetrical, there is no facial asymmetry. Hearing is intact bilaterally to normal conversation volume. Tongue palate and uvula
are midline. Sternocleidomastoid strengths are full bilaterally. Motor strengths are 5/5 bilateral upper and lower extremities on medical research Penrose scale. There is no drift or involuntary movement noted. Deep tendon reflexes are 2+ bilateral
upper and lower extremities and Babinski is absent bilaterally. Sensations of pain, touch, temperature and vibration are intact and bilaterally symmetrical. There was no extinction noted on double simultaneous stimulation. Coordination is intact by
finger to nose bilaterally. Romberg's negative gait is within normal limits
Lab Results: Addendum
Neuro Imaging: Atrophy small vessel disease normal ventricles
Impression:
(Mrs.) ORLIN SCHAFFER is a 73 year old F who has presented to the hospital with (symptoms/chief complaint) of dizziness
Differentials for the patient's presentation include:
1. Benign positional vertigo
2. Drug induced vertigo multifactorial gabapentin Ambien propranolol
Recommendations:
1. Ecasa 81
2. Decrease ZOLPIDEM
3. Vestibular therapy
4. B12 supplementation
Discussed patient care with: Patient and hospitalist
Allergies
-
Allergies
Allergy/AdvReac Type Severity Reaction Status Date / Time
house dust Allergy Unknown Verified 08/01/24 20:07
Iodinated Contrast Media Allergy Hives Verified 08/01/24 20:05
iodine Allergy Hives Verified 08/01/24 20:05
mold Allergy Unknown Verified 08/01/24 20:07
Vital Signs and Labs
-
Vital Signs and Labs:
Vital Signs
Temp Pulse Resp BP Pulse Ox
36.7 C 74 18 120/67 99
08/03/24 10:58 08/03/24 10:58 08/03/24 10:58 08/03/24 10:58 08/03/24 10:58
Lab Results
08/02/24 06:10
08/02/24 06:10
Sodium 139 mmol/L (135-145) 08/02/24 06:10
Potassium 3.8 mmol/L (3.5-5.1) 08/02/24 06:10
BUN 31 mg/dl (7-17) H 08/02/24 06:10
Glucose 104 mg/dl (70-99) H 08/02/24 06:10
Calcium 8.4 mg/dl (8.4-10.2) 08/02/24 06:10
LDL Cholesterol, Calc 74 mg/dl 08/02/24 06:10
Medications
-
Home Medications
�Medication �Instructions �Recorded
albuterol sulfate 90 mcg/actuation 2 puff inhalation R Q4HPRN PRN 08/01/24
aerosol inhaler sob/wheezing
aspirin 81 mg tablet,delayed 81 mg PO DAILY Blood Clot 08/01/24
release Prevention/Tx
atorvastatin 20 mg tablet 20 mg PO DAILY High Cholesterol 08/01/24
azelastine 137 mcg (0.1 %) nasal 1 spray intranasal DAILYPRN PRN 08/01/24
spray congestion
bupropion HCl 300 mg 24 hr tablet, 300 mg PO DAILY Depression 08/01/24
extended release
cevimeline 30 mg capsule 30 mg PO DAILY SECRETIONS 08/01/24
cholecalciferol (vitamin D3) 50 50 mcg PO DAILY Supplement 08/01/24
mcg (2,000 unit) tablet
clonazepam 0.5 mg tablet 0.5 mg PO DAILYPRN PRN anxiety 08/01/24
desvenlafaxine succinate 100 mg 100 mg PO DAILY 08/01/24
tablet,extended release 24 hr
elacestrant 345 mg tablet (Orserdu) 345 mg PO QPM Cancer 08/01/24
fenofibrate nanocrystallized 48 mg 48 mg PO DAILY High Cholesterol 08/01/24
tablet
fluticasone propionate 115 2 puff inhalation R DAILY 08/01/24
mcg-salmeterol 21 mcg/actuation Lung/Breathing Issues
HFA inhaler (Advair HFA)
fluticasone propionate 50 1 spray intranasal DAILYPRN PRN 08/01/24
mcg/actuation nasal allergies/congestion
spray,suspension
gabapentin 300 mg capsule 900 mg PO BID Neurological 08/01/24
Condition
hydrochlorothiazide 25 mg tablet 25 mg PO DAILY Blood Clot 08/01/24
Prevention/Tx
hydroxyurea 500 mg capsule 500 mg PO DAILY Autoimmune Disorder 08/01/24
lidocaine-prilocaine 2.5 %-2.5 % 1 applic topical DAILYPRN PRN 08/01/24
topical cream prior to port access
prochlorperazine maleate 5 mg 5 mg PO Q6HPRN PRN nausea 08/01/24
tablet
propranolol 80 mg capsule,24 80 mg PO DAILY Blood Pressure 08/01/24
hr,extended release
simethicone 80 mg chewable tablet 80 mg PO DAILYPRN PRN gas 08/01/24
therapeutic multivitamin 1 tab PO DAILY Supplement 08/01/24
zolpidem 12.5 mg tablet,extended 12.5 mg PO HS Sleep 08/01/24
release,multiphase
== END 2024-08-03 12:07 | disposition home or self-care (01) | DRG 149 ==
LOC: 2 NORTH 19:24
PROVIDERS: ADMITTING PHYSICIAN Internal Medicine; ATTENDING PHYSICIAN Internal Medicine; CONSULT PHYSICIAN Psychiatry & Neurology Neurology; EMERGENCY PHYSICIAN Student in an Organized Health Care Education/Training Program; FAMILY PHYSICIAN Internal Medicine Geriatric Medicine
DX: H81.10 Benign paroxysmal vertigo, unspecified ear (principal); I82.891 Chronic embolism and thrombosis of other specified veins; C79.51 Secondary malignant neoplasm of bone; C78.7 Secondary malignant neoplasm of liver and intrahepatic bile duct; C50.919 Malignant neoplasm of unspecified site of unspecified female breast
CPT/HCPCS: 70450; 70553; 80048; 80053; 80061; 82962; 85025; 85027; 87070; 92523; 92610; 93005; 93306; 93880; 94640; 97161; 97166; 99285; A9575

== ENCOUNTER → 2024-10-09 15:12 | Outpatient (REF) | payer MEDICARE, OTHER, SELFPAY ==
[2024-10-09 17:54] LABS: % Basophils 0.9 % (0-2); % Eosinophils 5.7 % (0-6); % Immature Granulocytes 0.3 % (0-0.5); % Lymphocytes 25.8 % (20.5-51.1); % Monocytes 9.3 % (1.7-9.3); Absolute Basophils 0.1 10^3/uL (0-0.2); Absolute Eosinophils 0.4 10^3/uL (0-0.7); Absolute Lymphocytes 1.8 10^3/uL (1.2-3.4); Absolute Monocytes 0.7 10^3/uL (0.1-0.6); Absolute Neutrophils 4.1 10^3/uL (1.4-6.5); Hematocrit 37.7 % (37.0-47.0); Hemoglobin 12.8 g/dL (12.0-16.0); Mean Corpuscular Hgb 33.6 pg (27.0-31.0); Mean Platelet Volume 9.6 fL (7.4-10.4); Nucleated Red Blood Cells % 0 %; Platelet Count 363 10^3/uL (130-400); Red Blood Cell Count 3.81 10^6/uL (4.20-5.40); Red Cell Dist. Width 13.3 % (11.5-14.5)
[2024-10-09 18:07] LABS: Magnesium 1.7 mg/dl (1.6-2.3)
[2024-10-09 18:14] LABS: Erythrocyte Sed Rate 18 mm/hour (0-20)
[2024-10-11 17:13] LABS: Thyroglobulin Antibodies <0.9 IU/mL (0.0-4.0); Thyroid Peroxidase Ab (TPO) 2.2 IU/mL (0.0-9.0)
== END ==
LOC: MRI 3T 15:12
PROVIDERS: ATTENDING PHYSICIAN Psychiatry & Neurology Neurology; FAMILY PHYSICIAN Internal Medicine Geriatric Medicine; REFERRING PHYSICIAN Student in an Organized Health Care Education/Training Program
DX: H49.22 Sixth [abducent] nerve palsy, left eye (principal)
CPT/HCPCS: 36415; 70543; 70553; 83735; 85025; 85652; 86376; 86618; 86800; A9575

== ENCOUNTER 2024-11-09 12:54 | Outpatient (RCR) | payer MEDICARE, OTHER, SELFPAY | END 2024-11-09 23:59 | disposition home or self-care (01) | LOC: RPT 12:54 | PROVIDERS: ATTENDING PHYSICIAN Internal Medicine Geriatric Medicine | DX: I97.2 Postmastectomy lymphedema syndrome (principal); M25.612 Stiffness of left shoulder, not elsewhere classified; C50.912 Malignant neoplasm of unspecified site of left female breast; C50.919 Malignant neoplasm of unspecified site of unspecified female breast; C79.51 Secondary malignant neoplasm of bone; Z73.6 Limitation of activities due to disability; R26.81 Unsteadiness on feet; M79.602 Pain in left arm; G62.9 Polyneuropathy, unspecified | CPT/HCPCS: 97140; 97530 ==

== ENCOUNTER 2024-12-27 15:37 | Emergency (ER) | payer MEDICARE, SELFPAY ==
[2024-12-27 15:55] VITALS: BP 143/87
--- NOTE | 2024-12-27 15:56 | ED.GENMED ---
ED Provider Triage
<Frederick Holley PA-C - Last Filed: 12/27/24 15:56>
-
Patient seen by provider in Triage?: Seen in Triage
Attestation: A medical screening examination has been initiated by a qualified medical provider. Based on the assessment performed at this time, it has been determined that an emergent medical condition may exist and the patient has been informed
that further medical evaluation and possible additional diagnostic testing may be needed.
HPI: Accidental trip and fall at [employer] parking lot. Patient sustained through and through laceration to her upper lip. No LOC, no vomiting, no vision changes. CT of the head, facial bones and cervical spine ordered. Patient did arrive in a
c-collar but kept taking the c-collar off.
GENERAL: Alert , in no apparent distress
EYE: No visual abnormalities.
NECK: Trachea midline
ENT: No visible abnormalities.
LUNGS: No acute respiratory distress
NEUROLOGICAL: Alert and oriented
SKIN: Skin intact. No visible changes.
MUSCULOSKELETAL: Moving extremities normally
PSYCH: Normal and appropriate interaction.
This is a medical evaluation conducted in person to initiate diagnostic evaluation and provide initial therapeutics. Please see further documentation by the treating clinician.
History of Present Illness
<Frederick Holley PA-C - Last Filed: 12/27/24 15:56>
General
Chief Complaint: Fall
Time Seen by Provider: 12/27/24 16:56
<Gladys Romeo PA-C - Last Filed: 12/28/24 00:17>
General
Source: patient
Exam Limitations: none
Nursing documentation reviewed up to this point in time: agreed with
History of Present Illness
History of Present Illness:
74-year-old female with a past medical history of breast cancer with mets to the lung, asthma presents emergency department today with a lip laceration following a fall. She reports that she was walking out of [employer] carrying a large [employer] banner and
other packages when she lost her footing and fell forward, and hit her face onto the pavement. She did not loose consciousness. She does take aspirin but no blood dinner. She denies neck pain. She states that she had a transient episode of frontal
headache that since resolved.
Past History
<Frederick Holley PA-C - Last Filed: 12/27/24 15:56>
Past History
ED Past Medical History: Cancer (Breast) and HTN
Social History
Tobacco: Non-smoker
Alcohol: None
Review of Systems
<Gladys Romeo PA-C - Last Filed: 12/28/24 00:17>
Review of Systems
All Other Systems: ROS reviewed and negative except as documented in HPI and ROS
Phy Exam
<KALPESH Sandoval Last Filed: 12/28/24 00:17>
Physical Exam
Physical Exam:
General: Patient is well appearing and in no acute distress; non-toxic
Skin: Small abrasion noted to posterior surface of right forearm. 2 cm laceration noted just above the top lip not crossing the john border. 3 cm laceration noted on the inner mucosal surface of the upper lip.
Head: See above. No palpable hematomas. No tenderness to palpation of the facial bones, TMJ joints intact bilaterally.
Eyes: Sclera non-icteric. EOMs intact. PERRLA.No entrapment.
Nose: No tenderness of the nasal bones. No septal hematoma. No bleeding within the nares bilaterally.
Cardiac: Regular rate and rhythm, no murmurs, mild tenderness to palpation of left upper external chest wall with no palpable crepitus
Neck: No tenderness to palpation of the cervical spine.
Peripheral Vascular: No lower extremity swelling or edema
Pulm: Normal respiratory effort, no wheezes, rales, or rhonchi
Abdomen: No tenderness to palpation.
Musculoskeletal: 5/5 strength in bilateral upper and lower extremities. No bony tenderness to palpation of right upper extremity, no pain with ROM
Neuro: CN II-XII intact, no focal neurologic deficits.
Psych: Appropriate mood and affect
Course
<Frederick Holley PA-C - Last Filed: 12/27/24 15:56>
Orders/Labs/Results
Orders:
Orders
12/27/24 15:[address] Cervical Spine W/o Iv Contr Urgent
Comment:
Reason For Exam: fall, head/facial injuries
CT Facial Bones W/o Iv Contras Urgent
Comment:
Reason For Exam: fall, facial injuries
CT Head W/o Iv Contrast Urgent
Comment:
Reason For Exam: fall, head/face injury
12/27/24 17:25
Tetanus/Diphth/Acelpertussis [Adacel] 0.5 ml IM .ONCE ONE
12/27/24 18:05
Electrocardiogram (*1) Urgent
Reason for Study: Chest Pain
EKG- Treatment ONCE
CR Chest - 2 Views Urgent
Comment:
Reason For Exam: left sided chest pain following fall
12/27/24 18:11
Amoxicillin 875 mg/Clav 125 mg [Augmentin 875 mg/125 mg] 1 tablet PO NOW STA
12/27/24 20:14
Acetaminophen [Tylenol] 650 mg PO NOW STA
Vital Signs
Initial and Last Documented VS:
Initial Vital Signs
Temp Pulse Resp BP Pulse Ox
98.4 F 78 20 143/87 96
12/27/24 15:55 12/27/24 15:55 12/27/24 15:55 12/27/24 15:55 12/27/24 15:55
Last Documented Vital Signs
Temp Pulse Resp BP Pulse Ox
98.4 F 78 20 143/87 96
12/27/24 15:55 12/27/24 15:55 12/27/24 15:55 12/27/24 15:55 12/27/24 15:55
<Gladys Romeo PA-C - Last Filed: 12/28/24 00:17>
Orders/Labs/Results
Orders:
Orders
12/27/24 15:[address] Cervical Spine W/o Iv Contr Urgent
Comment:
Reason For Exam: fall, head/facial injuries
CT Facial Bones W/o Iv Contras Urgent
Comment:
Reason For Exam: fall, facial injuries
CT Head W/o Iv Contrast Urgent
Comment:
Reason For Exam: fall, head/face injury
12/27/24 17:25
Tetanus/Diphth/Acelpertussis [Adacel] 0.5 ml IM .ONCE ONE
12/27/24 18:05
Electrocardiogram (*1) Urgent
Reason for Study: Chest Pain
EKG- Treatment ONCE
CR Chest - 2 Views Urgent
Comment:
Reason For Exam: left sided chest pain following fall
12/27/24 18:11
Amoxicillin 875 mg/Clav 125 mg [Augmentin 875 mg/125 mg] 1 tablet PO NOW STA
12/27/24 20:14
Acetaminophen [Tylenol] 650 mg PO NOW STA
Vital Signs
Initial and Last Documented VS:
Initial Vital Signs
Temp Pulse Resp BP Pulse Ox
98.4 F 78 20 143/87 96
12/27/24 15:55 12/27/24 15:55 12/27/24 15:55 12/27/24 15:55 12/27/24 15:55
Last Documented Vital Signs
Temp Pulse Resp BP Pulse Ox
98.4 F 78 20 143/87 96
12/27/24 15:55 12/27/24 15:55 12/27/24 15:55 12/27/24 15:55 12/27/24 15:55
Procedures
<Gladys Romeo PA-C - Last Filed: 12/28/24 00:17>
Laceration Closure
upper outer lip:
Status of Wound: clean
Size of Wound in cm: 2
Description of Wound Edges: ragged
Preparation: cleaned with saline
Anesthesia: 1% Lidocaine with epi
Type of Closure: single layer closure
Skin Closure Material: 5-0 prolene
Number of sutures: 4
upper inner lip:
Status of Wound: clean
Size of Wound in cm: 3
Description of Wound Edges: sharp
Preparation: cleaned with saline
Anesthesia: 1% Lidocaine with epi
Wound exploration: explored to base- no FB
Type of Closure: single layer closure
Skin Closure Material: 5-0 chromic gut
Number of sutures: 6
<Gladys Romeo PA-C - Last Filed: 12/28/24 00:17>
MDM/Problems Addressed
Differential Diagnosis Includes:
mechanical fall, concussion, rib contusion, subdural hematoma, epidural hematoma, lip laceration, abrasion
MDM/Problems Addressed:
74 y/o female presents to the ER today following a mechanical fall. She did not loose consciousness. She denies headache and neck pain currently. On physical exam, there is a small abrasion noted to right forearm with no bony tenderness normal MSK
exam. There is also lip laceration noted. She is neurologically intact. CT scans negative, CXR shows no rib fracture, no pneumothorax. Suspect chest pain musculoskeletal secondary to fall, do not suspect ACS especially in light of benign EKG.
Patient stable for dischargre.
Chronic conditions affecting care:
breast cancer mets to lung
<Gladys Romeo PA-C - Last Filed: 12/28/24 00:17>
*Pulse Oximetry
Patient hypoxic: no
*Critical Care Note
Total Time (30-74mins, 75-104mins- exclusive of procedures): Not Applicable
Data Reviewed
Review of Other/Old Records Reveals: Records (reviewed discharge summary from 08/03/24 patient seen for vertigo workup negative for stroke)
Prescriptions/Medications Considered But Not Given:
patient given prescription for Augmentin for prophylaxis
<Gladys Romeo PA-C - Last Filed: 12/28/24 00:17>
Patient Management
Escalation/DeEscalation of care consider admission/obs:
Case discussed with my attending
ED Attending Note
<Frederick Holley PA-C - Last Filed: 12/27/24 15:56>
-
Portions of this chart may have been created with voice recognition software.� Occasional wrong word or��sound alike� substitutions may have occurred due to the inherent limitations of voice recognition software.
Discharge Plan
Departure
Patient Disposition: Home (Routine Discharge)
Date of Disposition: 12/27/24
Time of Disposition: 21:02
Admit to: Med/Surg
Patient with high blood pressure during this ER visit?: Yes
Condition: Good
Discharge Problem:
Laceration of lip, Fall
Instructions: Laceration Repair With Stitches (DC), Preventing falls in adults, BLOOD PRESSURE
Prescriptions:
New
amoxicillin-pot clavulanate 875-125 mg tablet
1 tab PO BID 5 Days Qty: 10 0RF
No Action
hydroxyurea 500 mg capsule
500 mg PO DAILY
clonazepam 0.5 mg tablet
0.5 mg PO DAILYPRN PRN (Reason: anxiety)
Patient Comments:
08/01/2024: last filled 06/02/24, 30 tabs for 30 days from [facility]
lidocaine-prilocaine 2.5-2.5 % cream
1 applic topical DAILYPRN PRN (Reason: prior to port access)
gabapentin 300 mg capsule
900 mg PO BID
zolpidem 12.5 mg tablet,ext release multiphase
12.5 mg PO HS
Patient Comments:
08/01/2024: last filled 07/13/24, 30 tabs for 30 days from [facility]
desvenlafaxine succinate 100 mg tablet extended release 24 hr
100 mg PO DAILY
Orserdu 345 mg tablet
345 mg PO QPM
propranolol 80 mg capsule,extended release 24 hr
80 mg PO DAILY
atorvastatin 20 mg tablet
20 mg PO DAILY
prochlorperazine maleate 5 mg tablet
5 mg PO Q6HPRN PRN (Reason: nausea)
therapeutic multivitamin Tablet
1 tab PO DAILY
aspirin 81 mg Tablet,Delayed Release (Dr/Ec)
81 mg PO DAILY
cevimeline 30 mg capsule
30 mg PO DAILY
hydrochlorothiazide 25 mg tablet
25 mg PO DAILY
azelastine 137 mcg (0.1 %) [place],Non-Aerosol
1 spray INTRANASAL DAILYPRN PRN (Reason: congestion)
albuterol sulfate 90 mcg/actuation Hfa Aerosol Inhaler
2 puff INHALATION R Q4HPRN PRN (Reason: sob/wheezing)
fluticasone propionate 50 mcg/actuation [place],Suspension
1 spray INTRANASAL DAILYPRN PRN (Reason: allergies/congestion)
simethicone 80 mg Tablet,Chewable
80 mg PO DAILYPRN PRN (Reason: gas)
bupropion HCl 300 mg Tablet Extended Release 24 Hr
300 mg PO DAILY
fenofibrate nanocrystallized 48 mg tablet
48 mg PO DAILY
fluticasone propion-salmeterol [Advair HFA] 115-21 mcg/actuation Hfa Aerosol Inhaler
2 puff INHALATION R DAILY
cholecalciferol (vitamin D3) 50 mcg (2,000 unit) Tablet
50 mcg PO DAILY
Referrals:
Dimitrios Brasher MD [Family Provider] -
Activity Restrictions/Additional Instructions:
An antibiotic called Augmentin was sent to your pharmacy. Please take 1 tablet twice daily for 5 days.
Stitches on the inner side of your mouth will dissolve on their own. The stitches on the outside of your upper lip need to be removed by your primary care provider, the emergency department, urgent care in 7 days. Please keep the wound dry for 24
hours. After 24 hours, you can let warm soapy water run over the wound. Please do not scrub the wound.
Your CAT scan of the cervical spine, facial bones, and brain, was normal.
PLEASE RETURN TO EMERGENCY DEPARTMENT SHOULD YOU DEVELOP SIGNS OF INFECTION SUCH PURULENT DRAINAGE FROM YOUR WOUND, SURROUNDING SWELLING OR REDNESS TO THE WOUND, FEVERS OR CHILLS, NAUSEA AND VOMITING, CHEST PAIN, SHORTNESS OF BREATH, FAINTING
SPELLS, DIZZINESS, OR ANY OTHER SIGNS OR SYMPTOMS WORRISOME TO YOU.
Interventions
Interventions:
*Risk Screen - Suicide Last Done: 12/27/24 15:55
*General Assessment Last Done: 12/27/24 16:34
*Neglect/Abuse Screening Last Done: 12/27/24 16:34
*ED COVID-19 Vaccine History Last Done: 12/27/24 16:34
*Nursing Disposition Last Done: 12/27/24 21:12
ED-Musculoskeletal Assessment Last Done: 12/27/24 16:34
ED- Neurological Assessment Last Done: 12/27/24 16:34
ED-Skin Assessment Last Done: 12/27/24 16:34
Discharge Date and Time
Discharge Date/Time: 12/27/24 21:12
Print Language: [id number]
[2024-12-27] MEDS: ADACEL 0.5 ML IM (17:31)
[2024-12-27] MEDS: AUGMENTIN 875 MG/125 MG 1 TABLET PO (19:01)
[2024-12-27] MEDS: TYLENOL 650 MG PO (20:56)
== END 2024-12-27 21:12 | disposition home or self-care (01) ==
LOC: EMR 15:37
PROVIDERS: EMERGENCY PHYSICIAN Emergency Medicine; FAMILY PHYSICIAN Internal Medicine Geriatric Medicine
DX: S01.511A Laceration without foreign body of lip, initial encounter (principal); S50.811A Abrasion of right forearm, initial encounter; W01.0XXA Fall on same level from slipping, tripping and stumbling without subsequent striking against object, initial encounter; I10 Essential (primary) hypertension; J45.909 Unspecified asthma, uncomplicated; C50.919 Malignant neoplasm of unspecified site of unspecified female breast; C78.00 Secondary malignant neoplasm of unspecified lung; Z79.82 Long term (current) use of aspirin; Z23 Encounter for immunization
CPT/HCPCS: 12013; 90471; 99284; 70450; 70486; 71046; 72125; 90715; 93005

== ENCOUNTER → 2025-03-31 10:10 | Outpatient (REF) | payer MEDICARE, OTHER, SELFPAY ==
[2025-03-31 10:50] LABS: % Basophils 0.6 % (0-2); % Eosinophils 9.1 % (0-6); % Immature Granulocytes 0.2 % (0-0.5); % Lymphocytes 29.4 % (20.5-51.1); % Monocytes 14.8 % (1.7-9.3); % Neutrophils 45.9 % (42.2-75.2); Absolute Eosinophils 0.5 10^3/uL (0-0.7); Absolute Lymphocytes 1.5 10^3/uL (1.2-3.4); Absolute Monocytes 0.7 10^3/uL (0.1-0.6); Absolute Neutrophils 2.3 10^3/uL (1.4-6.5); Hematocrit 33.9 % (37.0-47.0); Hemoglobin 11.7 g/dL (12.0-16.0); Mean Corp Hgb Conc. 34.5 g/dL (33.0-37.0); Mean Corpuscular Hgb 31.2 pg (27.0-31.0); Mean Corpuscular Volume 90.4 fL (81.0-99.0); Mean Platelet Volume 10.2 fL (7.4-10.4); Nucleated Red Blood Cells % 0 %; Platelet Count 220 10^3/uL (130-400); Red Blood Cell Count 3.75 10^6/uL (4.20-5.40); Red Cell Dist. Width 12.3 % (11.5-14.5); White Blood Cell Count 4.9 10^3/uL (4.8-10.8)
[2025-03-31 11:16] LABS: ALT (SGPT) 29 U/L (0-35); AST (SGOT) 29 U/L (14-36); Albumin 4.2 g/dl (3.5-5.0); Alkaline Phosphatase 51 U/L (38-126); Blood Urea Nitrogen 25 mg/dl (7-17); Calcium 8.8 mg/dl (8.4-10.2); Carbon Dioxide 30 mmol/L (22-30); Chloride 101 mmol/L (98-107); Glucose 113 mg/dl (70-99); HDL Cholesterol 44 mg/dl; LDL Cholesterol, Calculated 81 mg/dl; Potassium 3.4 mmol/L (3.5-5.1); Sodium 142 mmol/L (135-145); Total Bilirubin 0.6 mg/dl (0.2-1.3); Total Cholesterol 203 mg/dl (50-199); Total Protein 6.7 g/dl (6.3-8.2); Triglyceride 391 mg/dl (10-149); Very Low Density Lipoprotein 78 mg/dl (0-30); eGFR > 60.00
[2025-03-31 11:52] LABS: TSH Reflex To Free T4 2.11 uIU/ml (0.47-4.68)
== END ==
LOC: REG 10:10
PROVIDERS: ATTENDING PHYSICIAN Internal Medicine Geriatric Medicine; OTHER PHYSICIAN Internal Medicine Cardiovascular Disease; REFERRING PHYSICIAN Student in an Organized Health Care Education/Training Program
DX: E78.1 Pure hyperglyceridemia (principal); Z00.00 Encounter for general adult medical examination without abnormal findings
CPT/HCPCS: 80053; 80061; 84443; 85025

== ENCOUNTER 2025-06-25 18:09 | Inpatient (IN) | payer MEDICARE, OTHER, SELFPAY ==
[2025-06-25] VITALS (14 sets, daily range): BP systolic 81–135; BP diastolic 66–109; BMI 28.9
--- NOTE | 2025-06-25 14:14 | ED.GENMED ---
History of Present Illness
General
Chief Complaint: Weakness
Source: patient and spouse
Exam Limitations: none
Time Seen by Provider: 06/25/25 14:01
Nursing documentation reviewed up to this point in time: agreed with
History of Present Illness
History of Present Illness:
Note:
CHIEF COMPLAINT(S)
Weakness and difficulty eating due to foreign body ingestion.
HISTORY OF PRESENT ILLNESS
The patient is a 74-year-old female with a history of metastatic breast cancer, currently undergoing treatment, who presents with weakness and difficulty eating. The issue began on Wednesday when she noticed food starting to get stuck in her
throat while consuming her usual nutritional supplement, Boost. On Wednesday morning, she was able to expectorate a small, thin piece of plastic, likely from the Boost bottle, which had been obstructing her ability to ingest food properly. She stated
that she was coughing up instead of vomiting and had an increased production of mucus. This incident has left her feeling very weak and tired. She sought medical advice and was instructed by her oncologists office to come in for rehydration.
The patient was last treated on Wednesday with Everolimus, a chemotherapy agent she takes daily, but has not taken it since due to her concern about her inability to keep anything down. She is also receiving Faslodex, an intramuscular injection,
monthly for her cancer.
Her breast cancer has metastasized to her lungs and possibly her bones. Her oncologist is aware of the current situation but was unavailable this past week. Her expectation from this visit includes being rehydrated and feeling better supported.
PHYSICAL EXAM
- General: Afebrile, in no acute distress.
- Head, Ear, Nose, Throat: Normal salivary gland examination.
- Eyes: Pupils are equally round and reactive to light.
- Cardiovascular: Normal first and second heart sounds without extra heart sounds or murmurs. tachycardia, regular rhythm
- Pulmonary: Lungs clear to auscultation, no respiratory distress, tenderness noted in the right upper chest.
- Extremities: Patient wearing a sleeve on the left upper extremity for lymphedema.
- Abdomen: Soft, non-tender, no costovertebral angle tenderness noted.
PROBLEM LIST
Acute:
- Weakness and difficulty eating due to foreign body ingestion.
- Dehydration.
Chronic:
- Metastatic breast cancer with lung and possible bone involvement.
PLAN
- Initiate intravenous fluid therapy for rehydration.
- Perform chest X-ray to rule out possible aspiration.
- Check blood tests, including electrolytes, due to concerns of dehydration and poor oral intake.
- Reassess after hydration and lab results.
DIFFERENTIAL DIAGNOSIS
The Differential Diagnosis includes, in no particular order and is not limited to:
1. Esophageal stricture or obstruction.
2. Aspiration pneumonia.
3. Malignant involvement of the esophagus.
4. Dehydration secondary to poor oral intake.
5. Cancer-related fatigue.
6. Anemia due to chronic disease or treatment.
7. Nutritional deficiencies.
8. Metabolic derangements due to electrolyte imbalance.
9. Infection due to immunosuppression.
10. Lymphedema exacerbation.
CARE-UPDATE
06/25/25 - 16:05
Current EKG shows atrial flutter with a variable AV block and a heart rate of 141 bpm, with noted ST-T abnormalities. Compared to the EKG dated December 27, 2024, there has been a transition from atrial flutter to sinus rhythm, with an
intracurricular block that is mild and non-specific.
CARE-UPDATE
06/25/25 - 16:06
Patient is experiencing rapid atrial flutter; will initiate diltiazem for rate control. Documented hypokalemia with a potassium level of 3.1; will administer IV potassium for repletion. Plan to admit patient to hospitalist service for comprehensive
management. Chest X-ray findings suggest possible sequelae of metastatic breast cancer requiring further evaluation and management.
Disposition:
SUMMARY OF ENCOUNTER
The patient presented to the emergency department with complaints of weakness and difficulty eating due to a foreign body obstruction in the throat, suspected to be a piece of thin plastic from a nutritional supplement bottle. The patient has a
history of metastatic breast cancer with lung and possible bone involvement. She was noted to have dehydration due to poor oral intake. During the evaluation, she was found to have rapid atrial flutter with a variable AV block and hypokalemia. She
received intravenous fluid therapy for rehydration and was given IV potassium for electrolyte correction and diltiazem drip.
DISPOSITION
Admit to hospitalist service for comprehensive management at Intermediate Medical Unit (IMU) level of care.
ASSESSMENT
The patient has an acute condition of rapid atrial flutter with hypokalemia complicating her chronic metastatic breast cancer, leading to significant dehydration and weakness.
EMERGENCY TREATMENTS ADMINISTERED
- Diltiazem was initiated for rate control of rapid atrial flutter.
- IV potassium was administered for hypokalemia.
MANAGEMENT OF THE PATIENTS CARE WAS DISCUSSED WITH
The patient�s management, including her admission and care plan, was discussed with the hospitalist service.
PLAN
- Continue intravenous fluid therapy to correct dehydration.
- Manage electrolyte imbalance with IV potassium to achieve normokalemia.
- Initiate and monitor diltiazem for rate control of atrial flutter.
- Admit to hospitalist service for further evaluation and management of metastatic breast cancer with considerations of possible aspiration pneumonia and comprehensive oncological care.
INDEPENDENT REVIEW OF LABS AND INTERPRETATION OF TESTS
My independent review of electrolyte testing shows hypokalemia with a potassium level of 3.1.
My independent interpretation of the EKG shows atrial flutter with a variable AV block, heart rate of 141 bpm, and ST-T abnormalities.
My independent interpretation of the chest x-ray suggests possible sequelae of metastatic breast cancer requiring further evaluation and management.
MEDICATION RECONCILIATION
- Diltiazem initiated for rate control.
- IV potassium administered for hypokalemia correction.
MEDICAL DECISION MAKING
Number and Complexity of Problems Addressed:
Chronic conditions affecting care include metastatic breast cancer, lung and possible bone involvement, and dehydration with weakness. Differential diagnoses include esophageal stricture, aspiration pneumonia, malignant involvement of the esophagus,
cancer-related fatigue, anemia, nutritional deficiencies, metabolic derangements, infection due to immunosuppression, and lymphedema exacerbation.
Data:
Category 1
- Lab tests reviewed include electrolytes indicating hypokalemia.
- The following testing was considered, but the primary focus was on current issues: Detailed imaging for metastatic burden was not immediately prioritized given acute care focus.
Category 2
My independent interpretation of the EKG and chest x-ray was conducted.
Category 3
Discussion of management with the hospitalist included the critical care and stabilization required for atrial flutter and electrolyte imbalance.
Risk:
Admission to the hospitalist service indicates the necessity for more intensive intervention and the risk of complications due to rapid atrial flutter and ongoing oncological concerns.
DIAGNOSIS
- Rapid atrial flutter [ICD-10: I48.1]
- Hypokalemia [ICD-10: E87.6]
- Metastatic breast cancer [ICD-10: C50.919]
- Dehydration [ICD-10: E86.0]
Past History
Past History
ED Past Medical History: Cancer (Breast) and HTN
Social History
Tobacco: Non-smoker
Alcohol: None
Phy Exam
Physical Exam
Physical Exam:
.
Course
Orders/Labs/Results
Orders:
Orders
06/25/25 14:03
IV Insert/Care/Rem.- Treatment PRN
06/25/25 14:04
Urinalysis Reflex To Culture Urgent
06/25/25 14:05
Electrocardiogram (*1) Urgent
Reason for Study: Other
Other Reason for Exam: weakness
EKG- Treatment ONCE
CR Chest - 2 Views Urgent
Comment:
Reason For Exam: cough
06/25/25 14:17
Lactated Ringers [Lr] 1,000 ml IV BOLUS
06/25/25 14:27
Complete Blood Count/With Diff Urgent
Comprehensive Metabolic Panel Urgent
Magnesium Urgent
TSH Reflex To Free T4 Urgent
06/25/25 Dinner
Regular
06/25/25 15:56
Diltiazem 125 mg/125 ml Nss [Cardizem] 125 mg in 125 ml IV NOW
Initial dose in mg/hr, then titrate:: 5
Titrate to keep:: Heart rate 80-100 bpm
Titrate by mg/hr:: 5 mg/hr
Frequency of titrations (minutes):: 15
Maximum dose in mg/hr:: 15
Diltiazem HCl [Cardizem] 5 mg IV NOW STA
06/25/25 16:51
Potassium Chloride [KCl] 40 meq 0.9% Sodium Chloride 250 ml [Nss] 250 ml IV NOW
06/25/25 17:44
Heparin 4,000 units IV NOW STA
Heparin Protocol- PTT Orders As Directed
PTT per Heparin protocol: -Obtain CBC and baseline PTT - if not already collected.
-Obtain PTT 6 hours from start of infusion. Then, every 6 hours until 2 consecutive
PTT's are therapeutic. Then, PTT Daily.
-With each rate change, obtain PTT every 6 hours until 2 consecutive PTT's are
therapeutic. Then, PTT Daily.
Notify MD As Directed
Notify physician if: PTT is greater than or equal to 200.
06/25/25 17:45
Heparin 05547 Units/250 ml 25,000 units in 250 ml IV PER PROTOCOL
Weight to be used for heparin protocol in kilograms (kg):: 74
Protocol:: Cardiac Tx/Acute Coronary
PTT Goal Range to be used:: PTT 73 to 111 seconds
Order type:: Initial
INITIAL Infusion Dose (UNITS/KG/hr) & then follow protocol:: 12 units/kg/hr
Infusion Dose in UNITS/hr & then follow protocol (UNITS/hr):: 900
INFUSION RATE in mL/hr & then follow protocol (mL/hr):: 9
PTT less than or equal to 64 seconds:: Increase rate by 200 units/hr (+ 2 mL/hr)
PTT 64.1 to 72.9 seconds:: Increase rate by 100 units/hr (+ 1 mL/hr)
PTT 73 to 111 seconds:: Target Range. No change in rate.
PTT 111.1 to 130.9 seconds:: Decrease rate by 100 units/hr (- 1 mL/hr)
PTT 131 to 199.9 seconds:: HOLD for 1 hr. Then decrease rate by 200 units/hr (- 2 mL/hr)
PTT greater than or equal to 200 seconds:: HOLD for 2 hrs & Notify Provider. Then decrease by 200 units/hr (-
2 mL/hr)
Lab follow-up:: Each change, PTT q6h until 2 consecutive are therapeutic. Then PTT
daily.
06/25/25 17:49
Admit/Transfer Patient As Directed
Co-Sign Provider:
Level of Care: Inpatient admission
Assign to:: IMU- Intermediate Care
Physician / Group: antonietta enciso
Diagnosis: rapid aflutter, hypokalemia, possible pneumonitis from chemo
Reason for Hospitalization: rapid aflutter, hypokalemia, possible pneumonitis from chemo
Expected length of stay greater than two midnights?: Yes
ELOS- Estimated Length of Stay in days: 5
I certify the patient meets the requirements for IP care: Yes
Code Status As Directed
Resuscitation Status: Full Code
06/25/25 17:54
PRN Pain Medication Management As Directed
May give lesser potent ordered pain med per pt: Yes
preference::
Protocol:: Medication orders for pain may be administered in a
manner that supports deferring to patient preference
when the pt is:
- Requesting an ordered lesser potent pain medication.
Least to most potent pain medications are defined
as: acetaminophen < NSAID < tramadol < opioids
(morphine, oxycodone, hydromorphone).
- Requesting a lesser dose of the same medication IF
ORDERED.
- Requesting a less intrusive route of administration
if both routes are prescribed by the provider (PO <
IV).
06/25/25 17:[address] [CT Chest PE Study] Urgent
Comment:
Reason For Exam: aflutter, breast ca mets
06/25/25 18:13
Complete Blood Count/No Diff Urgent
Comment: Obtain baseline before beginning heparin infusion if not already collected
PTT Urgent
Comment: Obtain baseline before beginning heparin infusion if not already collected
06/25/25 19:20
Acetaminophen [Tylenol] 650 mg PO Q4HPRN PRN
Bisacodyl [Dulcolax] 10 mg RECTAL [id number] PRN
Clonazepam [Klonopin] 0.5 mg PO DAILYPRN PRN anxiety
Diltiazem 125 mg/125 ml Nss [Cardizem] 125 mg in 125 ml IV PER PROTOCOL
Currently infusing. Continue current dose and titrate:: Yes
Titrate to keep:: Heart rate 80-100 bpm
Titrate by mg/hr:: 5 mg/hr
Frequency of titrations (minutes):: 15
Maximum dose in mg/hr:: 15
Docusate W/Senna [Senokot-S] 1 tablet PO BIDPRN PRN
Ondansetron Orally Disint [Zofran Odt (Orally Disintegrating)] 8 mg PO TIDPRN PRN nausea
Polyethylene Glycol Powder [Miralax] 17 grams PO DAILYPRN PRN
Simethicone [Mylicon] 80 mg PO DAILYPRN PRN gas
06/25/25 19:20
Heparin Protocol- PTT Orders As Directed
PTT per Heparin protocol: -Obtain CBC and baseline PTT - if not already collected.
-Obtain PTT 6 hours from start of infusion. Then, every 6 hours until 2 consecutive
PTT's are therapeutic. Then, PTT Daily.
-With each rate change, obtain PTT every 6 hours until 2 consecutive PTT's are
therapeutic. Then, PTT Daily.
Activity As Directed
Activity Level: As Tolerated
Notify MD As Directed
Notify physician if: PTT is greater than or equal to 200.
Vital Signs As Directed
Frequency: Per unit guidelines
Pulse Ox/spot Check [RESP] Routine
Quantity: 1
Pt Eval And Treat Routine
Activity Level: As Tolerated
06/25/25 22:00
Aspirin Low Dose EC [Aspir Low (Enteric Coated)] 81 mg PO HS
Gabapentin [Neurontin] 900 mg PO TID
Zolpidem Tartrate [Ambien] 10 mg PO HS
cevimeline See Dose Instructions PO TID
06/26/25 06:00
Echo 2D MMode Color/Doppler IN AM
Reason for Study: aflutter
Cardiovascular Evaluation IN AM
Magnesium IN AM
06/26/25 08:00
Atorvastatin [Lipitor] 20 mg PO DAILY
Bupropion(24Hr)Extended Releas [WELLBUTRIN XL (24 hour extended release)] 300 mg PO DAILY
Cholecalciferol (Vitamin D3) [VITAMIN D3 (cholecalciferol)] 50 mcg PO DAILY
Fenofibrate [Tricor] 48 mg PO DAILY
Hydroxyurea [Hydrea] 500 mg PO DAILY
Multivitamin [Theragran] 1 tablet PO DAILY
desvenlafaxine succinate See Dose Instructions PO DAILY
06/27/25 06:00
Complete Blood Count/No Diff Q2D
Comment: Notify MD if platelet count is <130,000 or decreases by 50% from baseline
06/29/25 06:00
Complete Blood Count/No Diff Q2D
Comment: Notify MD if platelet count is <130,000 or decreases by 50% from baseline
07/01/25 06:00
Complete Blood Count/No Diff Q2D
Comment: Notify MD if platelet count is <130,000 or decreases by 50% from baseline
07/03/25 06:00
Complete Blood Count/No Diff Q2D
Comment: Notify MD if platelet count is <130,000 or decreases by 50% from baseline
07/05/25 06:00
Complete Blood Count/No Diff Q2D
Comment: Notify MD if platelet count is <130,000 or decreases by 50% from baseline
07/07/25 06:00
Complete Blood Count/No Diff Q2D
Comment: Notify MD if platelet count is <130,000 or decreases by 50% from baseline
07/09/25 06:00
Complete Blood Count/No Diff Q2D
Comment: Notify MD if platelet count is <130,000 or decreases by 50% from baseline
07/11/25 06:00
Complete Blood Count/No Diff Q2D
Comment: Notify MD if platelet count is <130,000 or decreases by 50% from baseline
Abnormal Lab Results
06/25/25
14:27
Hct 35.8 L %
(37.0-47.0)
RDW 15.2 H %
(11.5-14.5)
Absolute Monos (auto) 1.1 H 10^3/uL
(0.1-0.6)
Lymphocytes % 17.3 L %
(20.5-51.1)
Monocytes % 14.1 H %
(1.7-9.3)
Potassium 3.1 L mmol/L
(3.5-5.1)
Glucose 124 H mg/dl
(70-99)
AST 38 H U/L
(14-36)
06/25/25 14:27
06/25/25 14:27
Vital Signs
Initial and Last Documented VS:
Initial Vital Signs
Temp Pulse Resp BP Pulse Ox
98.2 F 74 16 123/66 96
06/25/25 11:57 06/25/25 11:57 06/25/25 11:57 06/25/25 11:57 06/25/25 11:57
Last Documented Vital Signs
Temp Pulse Resp BP Pulse Ox
98.1 F 84 17 135/109 97
06/25/25 20:45 06/25/25 18:30 06/25/25 18:20 06/25/25 18:00 06/25/25 19:49
*Pulse Oximetry
SaO2: 96
Oxygen Mode of Delivery: Room air
Patient hypoxic: no
*Critical Care Note
Total Time (30-74mins, 75-104mins- exclusive of procedures): 32
comment:
Critical care statement: A total of 32 minutes of critical care time was provided for this patient. This includes management of unstable vital signs, evaluation of the patient at bedside, reviewing the patient's pertinent medical records, discussion
with consultants, review of old EKGs and review of pertinent medical records. This time with separate from time utilized to perform the aforementioned documented procedures
ED Attending Note
-
Portions of this chart may have been created with voice recognition software.� Occasional wrong word or��sound alike� substitutions may have occurred due to the inherent limitations of voice recognition software.
Discharge Plan
Departure
Patient Disposition: Admit
Date of Disposition: 06/25/25
Time of Disposition: 16:06
Admit to: IMU
Presentation/result/management discussed w/ accepting MD/DO: Hospitalist
Patient with high blood pressure during this ER visit?: No
Condition: Fair
Discharge Problem:
Atrial flutter with rapid ventricular response, Acute hypokalemia, Breast cancer
Interventions
Interventions:
*Risk Screen - Suicide Last Done: 06/25/25 14:22
*General Assessment Last Done: 06/25/25 14:22
*Neglect/Abuse Screening Last Done: 06/25/25 14:22
*ED- Fall Risk Assessment Last Done: 06/25/25 14:22
*ED COVID-19 Vaccine History Last Done: 06/25/25 14:22
*Nursing Disposition Last Done: 06/25/25 19:20
ED- Cardiac Assessment Last Done: 06/25/25 14:33
ED- Neurological Assessment Last Done: 06/25/25 14:33
ED- Pulmonary Assessment Last Done: 06/25/25 14:33
Discharge Date and Time
Discharge Date/Time: 06/25/25 19:20
[2025-06-25] MEDS: LR 1000 IV (14:39)
[2025-06-25 14:52] LABS: Hematocrit 35.8 % (37.0-47.0); Hemoglobin 12.0 g/dL (12.0-16.0); Mean Corp Hgb Conc. 33.5 g/dL (33.0-37.0); Mean Corpuscular Volume 83.3 fL (81.0-99.0); Nucleated Red Blood Cells % 0 %; Platelet Count 313 10^3/uL (130-400); Red Cell Dist. Width 15.2 % (11.5-14.5)
[2025-06-25 15:23] LABS: ALT (SGPT) 28 U/L (0-35); AST (SGOT) 38 U/L (14-36); Albumin 4.2 g/dl (3.5-5.0); Alkaline Phosphatase 42 U/L (38-126); Blood Urea Nitrogen 15 mg/dl (7-17); Calcium 8.6 mg/dl (8.4-10.2); Carbon Dioxide 25 mmol/L (22-30); Chloride 106 mmol/L (98-107); Estimated Creatinine Clearance 46 ml/min; Glucose 124 mg/dl (70-99); Magnesium 1.8 mg/dl (1.6-2.3); Potassium 3.1 mmol/L (3.5-5.1); Sodium 136 mmol/L (135-145); Total Protein 6.9 g/dl (6.3-8.2); eGFR 58.39
[2025-06-25] MEDS: CARDIZEM 5 MG IV (16:48)
[2025-06-25] MEDS: CARDIZEM 125 IV (16:49)
--- NOTE | 2025-06-25 16:55 | HPS.HSE ---
Family Physician
-
Family Physician: Dimitrios Brasher
Chief Complaint
-
Generalized weakness and decreased appetite
History of Present Illness
74-year-old female who has been having difficulty eating and drinking since Wednesday morning 6 days ago when she believes she swallowed a small piece of thin red plastic from the boost nutritional supplement bottle. 2 days later on Wednesday she was
able to cough up a thin piece of plastic. She reports it was mixed with mucus. She states she has been very fatigued and tired she takes oral chemotherapy everolimus daily but has not taken in 6 days along with her other medications. For the past
3 days she has been drinking Gatorade and keeping down soup without difficulty. she also is receiving an intramuscular injection for her metastatic breast cancer to lungs and bone Called Faslodex. She was noted to be in rapid A-flutter in ER
dehydrated and hypokalemic. She was placed on IV Cardizem drip given IV fluids for rehydration and potassium supplementation. The patient denies fever, chills, chest pain, palpitations, cough, abdominal pain, nausea, vomiting, diarrhea, urinary
symptoms. Patient is currently eating a [employer] hamburger and Danish fries at bedside without any difficulty. 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
lumpectomy, mets to left lung 2014, mets to lumbar spine 2022, mets to left rib 05/18/2025 chemotherapy,Chronic left arm lymphedema wears sleeve, paroxysmal A-fib, HTN, neuropathy, anxiety, depression, HLD, chronic dry mouth, insomnia.
Medical History
Past Medical History
Past Medical History: Reports Other
Additional Past Medical History:
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
Port right upper chest wall
Chronic left arm lymphedema wears sleeve
paroxysmal A-fib
HTN
neuropathy
anxiety
depression
HLD
chronic dry mouth
insomnia.
Past Surgical History: Reports Other
Additional Past Surgical History:
Port right upper chest wall
Left breast lumpectomy 2003
Social History
Tobacco: Non-smoker
Alcohol: Occasional
Drug: None
Personal:
Living: With Family
Employment: Retired
Family History
Family History: Other (Father mesothelioma)
Allergies / Home Medications
Allergies reflects when Allergies were last updated in [facility].
Home Medications with original date entered in [facility]
Allergy/Medication List:
Allergies
Allergy/AdvReac Type Severity Reaction Status Date / Time
house dust Allergy Unknown Verified 06/25/25 12:03
iodine Allergy Hives Verified 06/25/25 12:03
mold Allergy Unknown Verified 06/25/25 12:03
Home Medications
aspirin 81 mg tablet,delayed release 81 mg PO HS Blood Clot Prevention/Tx 08/01/24
atorvastatin 20 mg tablet 20 mg PO DAILY High Cholesterol 08/01/24
azelastine 137 mcg (0.1 %) nasal spray 1 spray intranasal DAILYPRN PRN congestion 08/01/24
bupropion HCl 300 mg 24 hr tablet, extended release 300 mg PO DAILY Depression 08/01/24
cevimeline 30 mg capsule 30 mg PO TID dry mouth 08/01/24
cholecalciferol (vitamin D3) 50 mcg (2,000 unit) tablet 50 mcg PO DAILY Supplement 08/01/24
desvenlafaxine succinate 100 mg tablet,extended release 24 hr 100 mg PO DAILY 08/01/24
fenofibrate nanocrystallized 48 mg tablet 48 mg PO DAILY High Cholesterol 08/01/24
fluticasone propionate 50 mcg/actuation nasal spray,suspension 1 spray intranasal DAILYPRN PRN allergies/congestion 08/01/24
gabapentin 300 mg capsule 900 mg PO TID Neurological Condition 08/01/24
hydrochlorothiazide 25 mg tablet 25 mg PO DAILY Blood Clot Prevention/Tx 08/01/24
hydroxyurea 500 mg capsule 500 mg PO DAILY white blood cell count 08/01/24
propranolol 80 mg capsule,24 hr,extended release 80 mg PO DAILY Blood Pressure 08/01/24
simethicone 80 mg chewable tablet 80 mg PO DAILYPRN PRN gas 08/01/24
therapeutic multivitamin 1 tab PO DAILY Supplement 08/01/24
zolpidem 12.5 mg tablet,extended release,multiphase 12.5 mg PO HS Sleep 08/01/24
clonazepam 0.5 mg tablet 0.5 mg PO DAILYPRN PRN anxiety 06/25/25
denosumab 120 mg/1.7 mL (70 mg/mL) subcutaneous solution (Xgeva) 120 mg SC Q4W 06/25/25
everolimus (antineoplastic) 10 mg tablet 10 mg PO HS Cancer 06/25/25
fulvestrant 250 mg/5 mL intramuscular syringe (Faslodex) 1 mg IM QMONTH Cancer 06/25/25
ondansetron 4 mg disintegrating tablet 4 - 8 mg PO TIDPRN PRN nausea 06/25/25
Review of Systems
-
History Source: Patient and Family
A 12 point ROS was completed and negative except as noted: Yes
Constitutional: Reports Fatigue; Denies Fever or Chills
EENT: Denies Sore Throat or Runny Nose
Respiratory: Denies Cough or Trouble Breathing
Cardiac: Denies Chest Pain, Diaphoresis or Palpitations
Abdomen/GI: Reports Other; Denies Abdominal Pain, Nausea, Vomiting, Diarrhea, Constipated or Bloody Stools
: Denies Dysuria, Difficulty Voiding or Dark Urine
Musculoskeletal: Denies Joint Pain or Edema
Skin: Denies Itching or Rash
Neurological: Reports Weakness; Denies Dizzy or Headache
Endocrine: Reports No Symptoms
Psych: Reports Calm
Physical Exam
Vital Signs
Vital Signs
Temp Pulse Resp BP Pulse Ox
98.2 F 123 14 113/80 99
06/25/25 11:57 06/25/25 16:48 06/25/25 15:41 06/25/25 16:48 06/25/25 15:41
Physical Exam
General: Comfortable and Conversant; No Pain, Fever or Chills
HEENT: NormoCephalic, Anicteric, Moist mucous membranes, [place] Conjunctivae and No Ptosis
Respiratory: Rales (Left lower lung base); No Wheezes or Rhonchi
Cardiac: S1/S2 and Irregular Rhythm (A-fib on monitor); No Murmur, Rub, Gallop or Peripheral Edema
GI: Soft, Non Tender, Non Distended, Normal Bowel Sounds and No Hepatosplenomegaly
Rectal: Deferred by Provider
Musculoskeletal: No Clubbing, No Cyanosis and Edema, Left Upper Extremity (Chronic left arm lymphedema from lumpectomy in 2003); No Edema, Right Upper Extremity, Edema, Left Lower Extremity or Edema, Right Lower Extremity
Skin: Warm and Dry; No Rash
Neuro: AO x 3, No Motor Deficits, Nonfocal/grossly intact, Cranial Nerves Intact, No Sensory Deficits and DTR's Intact & Symmetrical; No Slurred Speech, Facial Droop, Tremors or Sedated
Psych: Calm
Laboratory Results
-
06/25/25 14:27
06/25/25 14:27
Laboratory Results
Total Bilirubin 0.9 mg/dl (0.2-1.3) 06/25/25 14:27
AST 38 U/L (14-36) H 06/25/25 14:27
ALT 28 U/L (0-35) 06/25/25 14:27
Alkaline Phosphatase 42 U/L (38-126) 06/25/25 14:27
Impression/Plan
-
Impression/plan:
Admit to IMU
#Rapid A-flutter/Paroxysmal A-fib
- HR 145 patient has not taken her propranolol in 6 days
- IV Cardizem bolus with drip
-On aspirin 81 mg daily
-Will start IV heparin drip
- Consult cardiology
- 2D echo
- TSH with free T4 reflex
2D echo 08/02/2024: EF 60-65%, mild LVH, stage II diastolic dysfunction, moderate to severe MR, mild to moderate aortic stenosis
#Concern for chemo induced interstitial edema/pneumonitis/ vs Pe
- Check CT PE study
CXR:Left upper lobe patchy airspace opacity at least in part related to known scarring in this region. No rule out superimposed pneumonia or neoplasm.
Probable additional areas of scarring and/or atelectasis in the right mid to lower lung zone.
Mild diffuse interstitial prominence may reflect pulmonary interstitial edema and/or pneumonitis. Cannot rule out underlying chronic interstitial lung disease.
#Acute hypokalemia secondary to dehydration
K3.1
Patient given 40 mEq rider
- Follow BMP
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
#Chronic left arm lymphedema wears sleeve
- Has not taken her Everolimus 10 mg at bedtime in the last 6 days due to not being able to eat
Receives Faslodex 1 mg IM monthly recently received 06/19/2025, patient gets Xgeva once a month
- Follows at [facility]
- Continue hydroxyurea 500 mg daily
#Mild hypertension/HTN essential due to volume depletion
BP 106/90
-Hold HCTZ 25 mg daily, propranolol 80 mg daily
#Neuropathy
-Continue gabapentin 900 mg p.o. 3 times daily
#Anxiety/depression
-Continue clonazepam 0.5 mg daily as needed, Wellbutrin 300 mg daily, desvenlafaxine 100 mg daily
#HLD
-Continue atorvastatin 20 mg daily, fenofibrate 40 mg daily
#Chronic dry mouth
-Cevimeline 30 mg p.o. 3 times daily dry mouth
#Insomnia
-Continue Ambien 12.5 mg at bedtime
DVT prophylaxis
Heparin drip
Full code
[2025-06-25] MEDS: KCL 270 MEQ IV (17:36)
--- NOTE | 2025-06-25 17:57 | W.PN.UPDATE ---
Update Note
Progress Note Update
This is an addendum to H&P written by Gemma Hammond on 06/25/2025. �Patient seen and examined independently with ACADEMIC INTERVENTIONIST.
74-year-old female past medical history of paroxysmal atrial fibrillation, progesterone positive HER2 negative breast cancer status post left lumpectomy with metastases to the left lung, mets to lumbar spine, mets to left rib on everolimus, chronic
left arm lymphedema, neuropathy, anxiety/depression, hyperlipidemia, chronic dry mouth, insomnia, presenting with ongoing fatigue. 6 days ago she swallowed a small piece of thin red plastic and coughed it up 2 days later.
She arrived heart rate up to 140s.
Labs show potassium 3.1.
Chest x-ray showed left upper lobe patchy airspace opacity in part related to known scarring in this region. No pneumonia or neoplasm. Mild diffuse interstitial prominence may reflect pulmonary interstitial edema no pneumonitis.
Patient with symptomatic atrial flutter with RVR. IV fluids were given. Cardizem drip started. Check echocardiogram. Heparin drip started. Cardiology consulted.
Hypokalemia may be secondary to HCTZ. Replete potassium.
She has evidence of possible pulmonary edema or pneumonitis on chest x-ray. Evaluate with CT chest with IV contrast to evaluate for chemotherapy related pneumonitis.
[2025-06-25] MEDS: HEPARIN 4000 UNITS IV (18:17)
[2025-06-25] MEDS: HEPARIN 25000 UNITS/250 ML IV (18:18)
[2025-06-25 18:29] LABS: Hematocrit 35.8 % (37.0-47.0); Hemoglobin 12.0 g/dL (12.0-16.0); Mean Corp Hgb Conc. 33.5 g/dL (33.0-37.0); Mean Corpuscular Volume 83.3 fL (81.0-99.0); Platelet Count 321 10^3/uL (130-400); Red Cell Dist. Width 15.4 % (11.5-14.5)
[2025-06-25 18:40] LABS: APTT 35.5 Sec (23.4-35.0)
--- NOTE | 2025-06-25 19:30 | PTCARENOTE ---
1930: Patient arrived into room 3355 from ER. PE study done prior to arrival with contrast; pt has iodine allergy listed. pt has no apparent reaction, no hives present, denies sob or cough. Heparin gtt infusing @ 900units/hr. Cardizem gtt infusing @
15mg/hr. Right SQ port dressing intact. Daughter(Jessie) at bedside, supportive of pt. CHG done. night monitor applied showing Afib. HR 70-100s. Pt asymptomatic; denies any sob/cp/palpitations/lightheadedness. Denies any pain. Skin intact. Pt
able to turn self while in bed. Pt able to swallow water, reports issues with swallowing and weakness recently; admission questions prompts order for speech and pt/ot consults. Pt declines travel agency manager consult. Reports hx MRSA 20 years ago in lungs.
MRSA swab sent.
Pt thankful for care. All questions answered. Pt updated on POC. Oriented to call [facility] and use. Call [facility] and tray table within reach.
[2025-06-25] MEDS: ASPIR LOW (ENTERIC COATED) 81 MG PO (22:32)
[2025-06-25] MEDS: AMBIEN 10 MG PO (22:32)
[2025-06-25] MEDS: NEURONTIN 900 MG PO (22:32)
[2025-06-26] VITALS (9 sets, daily range): BP systolic 100–134; BP diastolic 48–76; PULSE 90; O2SAT 98
[2025-06-26 00:50] LABS: APTT 133.7 Sec (23.4-35.0)
[2025-06-26] MEDS: CARDIZEM 125 IV (04:25)
[2025-06-26 05:48] LABS: Urine Character Clear (Clear)
[2025-06-26 06:16] LABS: Urine Red Blood Cell 0-2 /HPF (0-2)
[2025-06-26] MEDS: WELLBUTRIN XL (24 hour extended release) 300 MG PO (08:36)
[2025-06-26] MEDS: THERAGRAN 1 TABLET PO (08:36)
[2025-06-26] MEDS: VITAMIN D3 (cholecalciferol) 50 MCG PO (08:36)
[2025-06-26] MEDS: HYDREA 500 MG PO (08:36)
[2025-06-26] MEDS: LIPITOR 20 MG PO (08:36)
[2025-06-26] MEDS: NEURONTIN 900 MG PO (08:36)
[2025-06-26] MEDS: TRICOR 48 MG PO (08:36)
--- NOTE | 2025-06-26 08:50 | PTCARENOTE ---
Patient received from nightman. Patient resting comfortably in bed. AAO, VSS, a-fib. No events noted overnight. No complaints of pain at this time. Currently on Heparin gtt at 700 units/hr, next PTT due at 0800. Cardizem gtt @ 10mg/hr, was
at 15mg at start of shift and night RN was able to get it down to 5mg but had to increase to 10mg due to HR increase. Will attempt to wean as tolerated. ECHO planned for this AM. No further testing at this time. Call [facility] in reach.
--- NOTE | 2025-06-26 08:57 | CON.CAR ---
Addendum entered and electronically signed by Vishnu Gilbert MD 06/26/25 12:54:
74-year-old woman admitted admitted with weakness and paroxysmal atrial fibrillation after several days of not eating or drinking related to having a piece of plastic sticking in her throat. She was in atrial flutter and converted to sinus rhythm
on IV heparin and diltiazem. In retrospect, there is a diagnosis of remote atrial fibrillation, not anticoagulated.
PMH: Stage IV breast cancer with lung and bony mets metastasis, currently on everolimus left upper extremity lymphedema following lumpectomy,, remote PAF, hypertension, peripheral neuropathy, anxiety and depression hyperlipidemia and insomnia
PSH/FH/SH/Meds/allergies/meds/ROS: As below per Portia Webber, reviewed in detail and agree unless otherwise specified
Current meds reviewed
100/68, pulse 82, respiratory rate 15, afebrile, sats 91%, pleasant, no acute distress, lungs clear, regular rate and rhythm, abdomen benign extremities without clubbing cyanosis or edema, distal pulses intact
CT of chest, left upper lobe scarring, reticular nodular and groundglass opacities right upper lobe and right lower lobe, possibly infectious, no obvious bony mets, no pulmonary embolus
BUN/creatinine 15 and 1.0, initial potassium 1, total cholesterol 251, triglycerides 477, normal TSH
Hemoglobin 11.4 white count 6.9, BUN and creatinine
Initial EKG atrial flutter with variable conduction and PVCs versus aberrant ventricular conduction
Plan:
She presents with self-limited atrial flutter in the setting of dehydration and hypokalemia and weight loss with history of metastatic breast cancer. At baseline she is on propranolol ER 80 mg daily for tremor. She is now back in sinus rhythm.
Her echocardiogram shows moderate to severe MR which is largely unchanged compared to 2023. She has left atrial dilatation and mild aortic stenosis. LV function is preserved.
She has marked hypercholesterolemia but at present it is not necessary to treat.
For now, would add Eliquis 5 mg twice daily. Stop aspirin. Otherwise, no change to admission medications.
Okay for discharge from cardiac standpoint.
We will arrange for cardiac follow-up.
Addendum entered and electronically signed by Portia Olvera PA-C 06/26/25 11:43:
discussed results of echo with patient, EF preserved with mod to severe MR and mild to mod , stable compared to prior. LA dilated. has elevated risk for atrial arrhythmia recurrence. continue propranolol for now. eliquis has been added. replete K.
OP cardiac follow up arranged. no issues with DC from cardiac standpoint. d/w hospitalist via TT
Original Note:
Consultation
Consultation Request
Date/Time Consultation Performed: 06/26/25
Requesting Provider: Dr. Castillo
Performing Provider: Portia Olvera PA-C for Dr. EYAD Gilbert
Reason for Consultation: afib
Medical History
-
Chief Complaint: weakness
History of Present Illness:
Patient is a 74 yo F with PMH of stage IV breast cancer s/p lumpectomy, LN resection, XRT, on chemotherapy, chronic LUE lymphedema, HTN, HLD, essential tremor, MR, who presented to [facility] with weakness. She states morning of Wednesday 06/20 patient
was attempting to open bottle of Boost and a piece flicked off and got stuck in her throat. She states it was stuck until Wednesday AM when she was able to cough it up. She reports she has been having difficulty eating/drinking due to this and feels
very weak. States she has not been taking her meds since last Wednesday. Her oncologist referred her to to ER for rehydration. On arrival, noted to by hypokalemic and in rapid aflutter. She was started on IV heparin and IV cardizem gtt. She
spontaneously converted to SR around 7AM. She reports occasional fluttering feelings, but nothing of significance. She denies history of cardiac arrhythmias.
PMH:
stage IV breast cancer s/p lumpectomy, LN resection, XRT, on chemotherapy, followed by [facility], Dr. Dixie Chi
Chronic left upper extremity lymphedema
Hypertension
Hyperlipidemia
Essential tremor
Mild to moderate MR
Mild
Coronary artery calcifications by imaging
TK
Peripheral polyneuropathy
Past Medical History
Past Medical History: Other (in HPI)
Social History
Tobacco: Non-Smoker
Alcohol: None
Personal:
Living: With Family
Employment: Retired
Family History
Family History: Cancer, Diabetes and Hypertension
Allergies / Home Medications
Allergy/AdvReac Type Severity Reaction Status Date / Time
house dust Allergy Unknown Verified 06/25/25 12:03
iodine Allergy Hives Verified 06/25/25 12:03
mold Allergy Unknown Verified 06/25/25 12:03
�Medication �Instructions �Recorded �Confirmed �Type
aspirin 81 mg tablet,delayed 81 mg PO HS Blood Clot 08/01/24 06/25/25 History
release Prevention/Tx
atorvastatin 20 mg tablet 20 mg PO DAILY High Cholesterol 08/01/24 06/25/25 History
azelastine 137 mcg (0.1 %) nasal 1 spray intranasal DAILYPRN PRN 08/01/24 06/25/25 History
spray congestion
bupropion HCl 300 mg 24 hr tablet, 300 mg PO DAILY Depression 08/01/24 06/25/25 History
extended release
cevimeline 30 mg capsule 30 mg PO TID dry mouth 08/01/24 06/25/25 History
cholecalciferol (vitamin D3) 50 50 mcg PO DAILY Supplement 08/01/24 06/25/25 History
mcg (2,000 unit) tablet
desvenlafaxine succinate 100 mg 100 mg PO DAILY Mental 08/01/24 06/25/25 History
tablet,extended release 24 hr Health/Anxiety
fenofibrate nanocrystallized 48 mg 48 mg PO DAILY High Cholesterol 08/01/24 06/25/25 History
tablet
fluticasone propionate 50 1 spray intranasal DAILYPRN PRN 08/01/24 06/25/25 History
mcg/actuation nasal allergies/congestion
spray,suspension
gabapentin 300 mg capsule 900 mg PO TID Neurological 08/01/24 06/25/25 History
Condition
hydrochlorothiazide 25 mg tablet 25 mg PO DAILY Blood Clot 08/01/24 06/25/25 History
Prevention/Tx
hydroxyurea 500 mg capsule 500 mg PO DAILY white blood cell 08/01/24 06/25/25 History
count
propranolol 80 mg capsule,24 80 mg PO DAILY Blood Pressure 08/01/24 06/25/25 History
hr,extended release
simethicone 80 mg chewable tablet 80 mg PO DAILYPRN PRN gas 08/01/24 06/25/25 History
therapeutic multivitamin 1 tab PO DAILY Supplement 08/01/24 06/25/25 History
zolpidem 12.5 mg tablet,extended 12.5 mg PO HS Sleep 08/01/24 06/25/25 History
release,multiphase
clonazepam 0.5 mg tablet 0.5 mg PO DAILYPRN PRN anxiety 06/25/25 06/25/25 History
denosumab 120 mg/1.7 mL (70 mg/mL) 120 mg SC Q4W Cancer 06/25/25 06/25/25 History
subcutaneous solution (Xgeva)
everolimus (antineoplastic) 10 mg 10 mg PO HS Cancer 06/25/25 06/25/25 History
tablet
fulvestrant 250 mg/5 mL 1 mg IM QMONTH Cancer 06/25/25 06/25/25 History
intramuscular syringe (Faslodex)
ondansetron 4 mg disintegrating 4 - 8 mg PO TIDPRN PRN nausea 06/25/25 06/25/25 History
tablet
Review of Systems
-
History Source: Patient
All other systems: Negative unless noted
Physical Exam
Vital Signs
Temp Pulse Resp BP Pulse Ox
98.2 F 82 15 100/68 91
06/26/25 07:24 06/26/25 06:00 06/26/25 06:00 06/26/25 06:00 06/26/25 06:00
Physical Exam
General: No Apparent Distress and Comfortable
HEENT: Normocephalic, Anicteric and Moist Mucous Membranes
Respiratory: Clear and Non Labored Respirations
Cardiac: S1/S2, Regular Rhythm and Murmur
GI: Soft, Non Tender, Non Distended and Normal Bowel Sounds
Musculoskeletal: No Clubbing, No Cyanosis and Other (LUE in lymphedema sleeve)
Skin: Warm, Dry and Other (R chest port)
Neuro: AO x 3
Impression / Plan
-
Primary Clinical Quality Rn: Dr. Morse
Assessment:
Presentation with weakness
Hypokalemia
Concern for dehydration
Foreign body ingestion, was able to expectorate
Rapid typical atrial flutter s/p spontaneous conversion to SR
stage IV breast cancer s/p lumpectomy, LN resection, XRT, on chemotherapy, followed by [facility], Dr. Dixie Chi
Chronic left upper extremity lymphedema
Hypertension
Hyperlipidemia
Essential tremor
Mod to severe MR by echo 2023
Mild to mod by echo 2023
Coronary artery calcifications by imaging
TK
Peripheral polyneuropathy
ECHO 08/02/24: EF 60 to 65%, hyperdynamic LV function, stage II diastolic dysfunction, dense MAC, mild MS with peak/mean gradient 9/5 mmHg, moderate to severe MR, mild to moderate AAS with peak/mean gradients 27/14 mmHg, TIMA 1.4 cm�
ECHO 06/26/25: pending
Plan:
- Patient presented with weakness after swallowing a small piece of plastic, was able to cough it up several days later.
- She was hypokalemic on arrival, and there was also concern for dehydration. She is being rehydrated and K being repleted. of note, she is on HCTZ 25mg daily as OP
- On arrival was in rapid typical atrial flutter. Was started on IV Cardizem drip and spontaneously converted to sinus rhythm this morning. She takes propranolol 80 mg daily as an outpatient for essential tremor, but is not sure that it is helping
much. Consider transition to Toprol
- [id number] score of 5 for age, female, hypertension, vascular disease. Discussed risk of stroke in setting of atrial arrhythmia with patient, and recommendation for blood thinner. She denies significant bleeding issues. She is on aspirin 81
mg daily, which we will stop in favor of Eliquis 5 mg twice daily. Will have case management assess cost to patient
- Check echo, last from 2023 as above with noted valvular disease. unclear that she would be candidate for any valve intervention given cancer diagnosis
- TSH 1.9
- Chest CT without clear evidence for CHF. She denies shortness of breath. Treatment for possible aspiration/pneumonitis per primary service
- Will arrange outpatient cardiac follow-up
Data Reviewed
-
EKG: Tracing Personally Visualized and interpreted
CT Scan: Report Reviewed by me
Medical Tests (Nuc Med, Echo etc): Report Reviewed by me
Labs: Labs Reviewed by me
Old Records: Reviewed
[2025-06-26 09:17] LABS: Hematocrit 35.1 % (37.0-47.0); Hemoglobin 11.4 g/dL (12.0-16.0); Mean Corp Hgb Conc. 32.5 g/dL (33.0-37.0); Mean Corpuscular Volume 85.0 fL (81.0-99.0); Nucleated Red Blood Cells % 0 %; Platelet Count 313 10^3/uL (130-400); Red Cell Dist. Width 15.5 % (11.5-14.5)
[2025-06-26 09:29] LABS: APTT 50.3 Sec (23.4-35.0)
[2025-06-26 09:50] LABS: Blood Urea Nitrogen 12 mg/dl (7-17); Calcium 8.2 mg/dl (8.4-10.2); Carbon Dioxide 24 mmol/L (22-30); Chloride 107 mmol/L (98-107); Estimated Creatinine Clearance 51 ml/min; Glucose 142 mg/dl (70-99); Potassium 3.8 mmol/L (3.5-5.1); Sodium 137 mmol/L (135-145); eGFR > 60.00
[2025-06-26 09:51] LABS: HDL Cholesterol 44 mg/dl; Magnesium 1.8 mg/dl (1.6-2.3)
[2025-06-26 10:14] LABS: LDL Cholesterol, Direct 113 mg/dl
[2025-06-26] MEDS: ELIQUIS 5 MG PO (11:08)
--- NOTE | 2025-06-26 11:56 | CM ---
Initial assessment completed with patient with in room. Patient lives with in a 2 story plus basement home with 1st floor B/B and 2 steps to enter the home. PROMOTIONS REPRESENTATIVE patient was independent in ADL's and ambulation, drives. Patient has a
RW which she does not use and a lymphedema pump for LUE. She is to use the pump on a daily basis. No in-home services. No psychiatric hospitalizations. No service. Does have a HC-POA. PCP is Dr. Dimitrios Brasher. Pharmacy is [facility] in [place]
[facility] in [place]. Discharge POC: Therapy recommends outpatient PT. Patient wants to resume outpatient PT with , specifically the therapist Celine. notified to leave script in chart.
[2025-06-26] MEDS: INDERAL LA 80 MG PO (13:30)
--- NOTE | 2025-06-26 14:03 | W.DCSUMMARY ---
Addendum entered and electronically signed by Pal Castillo DO 06/27/25 12:46:
Typical Atrial flutter
Original Note:
Discharge Summary
Discharge Data
Date of Admission: 06/25/25
Date of Discharge: 06/26/25
Total time spent discharging patient (in min): 45
-
Pending Results: No
Hospital Course
Ms. Stearns is a 74-year-old female with a medical history of breast cancer (ER/[place] positive, HER2 negative diagnosed 2003, status post lumpectomy, mets to lung and bone, on chemotherapy), hypertension, neuropathy who presented with generalized
fatigue and recent cough. Her cough appears to open related to thin piece of plastic she accidentally swallowed when attempting to open a boost nutritional supplement bottle with her teeth. She was later able to cough up the piece of plastic. In
the emergency department she was found to be in A-fib with RVR. She was started on a diltiazem drip and admitted for further evaluation and management. She converted to normal sinus rhythm spontaneously. She had already been on propranolol as an
outpatient which she will be continued on. Her echocardiogram was unremarkable. She was started on Eliquis for anticoagulation. Her home hydrochlorothiazide was held as it may have contributed to her hypokalemia with a potassium of 3.1 on initial
labs. Her potassium was repleted. Her hydrochlorothiazide will continue to be held at discharge until she is able to follow-up with her primary care physician and repeat labs to monitor her electrolytes. She remained afebrile and without
leukocytosis. She had no signs of active infection. However her CT chest did show multiple abnormalities that appear related to her malignancy. She will need ongoing follow-up with her oncologist for monitoring of these abnormalities and ongoing
treatment of her cancer. At time of hospital discharge she was medically stable. She will need to follow-up with her primary care physician and with cardiology after hospital discharge.
General: No Apparent Distress, Comfortable and Conversant
HEENT: NormoCephalic, Moist mucous membranes, Atraumatic
Respiratory: Clear and Non Labored Respirations
Cardiac: S1/S2 and Regular Rhythm; No Rub or Gallop
GI: Soft, Non Tender, Non Distended and Normal Bowel Sounds
Musculoskeletal: No Edema, no deformity
: NO Adames
Neuro: Awake, Alert, Nonfocal/grossly intact
Psych: Calm and Intact Judgment/Insight
Discharge Plan
-
Patient Disposition: Home (Routine Discharge)
Discharge Diagnosis/Procedures: A-fib with RVR
Activity Restrictions/Additional Instructions:
Ms. Stearns is a 74-year-old female with a medical history of breast cancer (ER/[place] positive, HER2 negative diagnosed 2003, status post lumpectomy, mets to lung and bone, on chemotherapy), hypertension, neuropathy who presented with generalized
fatigue and recent cough. Her cough appears to open related to thin piece of plastic she accidentally swallowed when attempting to open a boost nutritional supplement bottle with her teeth. She was later able to cough up the piece of plastic. In
the emergency department she was found to be in A-fib with RVR. She was started on a diltiazem drip and admitted for further evaluation and management. She converted to normal sinus rhythm spontaneously. She had already been on propranolol as an
outpatient which she will be continued on. Her echocardiogram was unremarkable. She was started on Eliquis for anticoagulation. Her home hydrochlorothiazide was held as it may have contributed to her hypokalemia with a potassium of 3.1 on initial
labs. Her potassium was repleted. Her hydrochlorothiazide will continue to be held at discharge until she is able to follow-up with her primary care physician and repeat labs to monitor her electrolytes. She remained afebrile and without
leukocytosis. She had no signs of active infection. However her CT chest did show multiple abnormalities that appear related to her malignancy. She will need ongoing follow-up with her oncologist for monitoring of these abnormalities and ongoing
treatment of her cancer. At time of hospital discharge she was medically stable. She will need to follow-up with her primary care physician and with cardiology after hospital discharge.
Referrals:
Dimitrios Brasher MD [Family Provider, Internal Medicine]
Ju Ritter CRNP [Specified Professional Personl, Cardiology] - 06/28/25 9:00 am
Referral Note: You have a cardiology follow up appointment at the [place] office with Dr. Morse's nurse practitioner, Ju. Please call with questions.
Prescriptions:
New
Eliquis 5 mg Tablet
5 mg PO BID 30 Days Qty: 60 0RF
Continued
hydroxyurea 500 mg capsule
500 mg PO DAILY
gabapentin 300 mg capsule
900 mg PO TID
zolpidem 12.5 mg tablet,ext release multiphase
12.5 mg PO HS
desvenlafaxine succinate 100 mg tablet extended release 24 hr
100 mg PO DAILY
propranolol 80 mg capsule,extended release 24 hr
80 mg PO DAILY
atorvastatin 20 mg tablet
20 mg PO DAILY
therapeutic multivitamin Tablet
1 tab PO DAILY
aspirin 81 mg Tablet,Delayed Release (Dr/Ec)
81 mg PO HS
cevimeline 30 mg capsule
30 mg PO TID
azelastine 137 mcg (0.1 %) Morris,Non-Aerosol
1 spray INTRANASAL DAILYPRN PRN (Reason: congestion)
fluticasone propionate 50 mcg/actuation Morris,Suspension
1 spray INTRANASAL DAILYPRN PRN (Reason: allergies/congestion)
simethicone 80 mg Tablet,Chewable
80 mg PO DAILYPRN PRN (Reason: gas)
bupropion HCl 300 mg Tablet Extended Release 24 Hr
300 mg PO DAILY
fenofibrate nanocrystallized 48 mg tablet
48 mg PO DAILY
cholecalciferol (vitamin D3) 50 mcg (2,000 unit) Tablet
50 mcg PO DAILY
clonazepam 0.5 mg tablet
0.5 mg PO DAILYPRN PRN (Reason: anxiety)
ondansetron 4 mg tablet,disintegrating
4 - 8 mg PO TIDPRN PRN (Reason: nausea)
fulvestrant [Faslodex] 250 mg/5 mL Syringe
1 mg IM QMONTH
everolimus (antineoplastic) 10 mg tablet
10 mg PO HS
Xgeva 120 mg/1.7 mL (70 mg/mL) Solution
120 mg SC Q4W
Held
hydrochlorothiazide 25 mg tablet
25 mg PO DAILY
Hold Instructions: Hold until follow-up with PCP for repeat labs to monitor electrolytes
Discharge Orders:
Discharge Patient (As Directed); Ordered 06/26/25
Ordered By: Pal Castillo
Discharge Date and Time
Print Language: BRUNEIAN
--- NOTE | 2025-06-26 14:42 | CM ---
Addendum entered by Lilia Woodruff 06/26/25 16:06:
Unable to obtain pricing of Eliquis 5 mg BID in timely fashion. Was on hold with insurance company for 45 minutes. Patient was ready for discharge and transport. Patient on Eliquis. Patient said she is familiar with the costs. Coupon for
30 day free trial given to patient.
Original Note:
Patient has been medically cleared for discharge to home with script for outpatient PT/OT services. will transport home. Admission IMM within the 48 hr. time frame.
--- NOTE | 2025-06-26 16:14 | PTCARENOTE ---
Patient discharged home. Discharge instructions reviewed and all questions answered. Patients in room. Patient left with all known belongings and taken to main lobby via wheel chair.
--- NOTE | 2025-06-27 08:29 | PN.CDI ---
CDI
- -
CDI:
Physician Documentation Request
Admit Date: 06/25/25 18:09
Dear Doctor Anna,
Patient presented with weakness and difficulty eating.
06/25 Signed EKG shows atrial flutter.
06/26 cardiology consultation states 'she was in atrial fluter and converted to sinus rhythm on IV heparin and diltiazem.......Rapid typical atrial flutter s/p spontaneous conversion to SR'
Discharge summary states 'In the emergency department she was found to be in A-fib with RVR...'
Please clarify the presenting arrhythmia :
Typical Atrial flutter
Atrial fibrillation
Other
Use of terms such as suspected, likely, concern for, or probable (associated with a specific diagnosis that is being evaluated, monitored, or treated as if it exists) are acceptable and can be coded in the inpatient setting, when documented at the
time of discharge.
Thank you,
Juliette Noel RN, BSN
CDI Specialist
tiger text
Please use your independent medical judgment in providing your response.
== END 2025-06-26 16:38 | disposition home or self-care (01) | DRG 641 ==
LOC: IMU 18:09
PROVIDERS: Clinical Nurse Specialist Family Health; Physician Assistant; ADMITTING PHYSICIAN Hospitalist; ATTENDING PHYSICIAN Internal Medicine; EMERGENCY PHYSICIAN Emergency Medicine; FAMILY PHYSICIAN Internal Medicine Geriatric Medicine; OTHER PHYSICIAN Internal Medicine Cardiovascular Disease
DX: E87.6 Hypokalemia (principal); I48.3 Typical atrial flutter; C78.00 Secondary malignant neoplasm of unspecified lung; C79.51 Secondary malignant neoplasm of bone; I48.0 Paroxysmal atrial fibrillation; C50.819 Malignant neoplasm of overlapping sites of unspecified female breast; F32.A Depression, unspecified; E78.00 Pure hypercholesterolemia, unspecified; G47.00 Insomnia, unspecified; I10 Essential (primary) hypertension; E86.0 Dehydration; G25.0 Essential tremor; I08.3 Combined rheumatic disorders of mitral, aortic and tricuspid valves; Z17.0 Estrogen receptor positive status [ER+]; Z17.21 Progesterone receptor positive status; Z17.32 Human epidermal growth factor receptor 2 negative status; Z79.82 Long term (current) use of aspirin; Z79.899 Other long term (current) drug therapy; Z91.148 Patient's other noncompliance with medication regimen for other reason
CPT/HCPCS: 71046; 71275; 80048; 80053; 80061; 81003; 81015; 83721; 83735; 84443; 85025; 85027; 85730; 87070; 87086; 93005; 93306; 96361; 96374; 96376; 97162; 99291; Q9967

== ENCOUNTER → 2025-08-10 08:30 | Outpatient (REF) | payer MEDICARE, OTHER, SELFPAY ==
[2025-08-10 08:43] LABS: Glucose 111 mg/dl (70-99)
== END ==
LOC: PET 08:30
PROVIDERS: Student in an Organized Health Care Education/Training Program; ATTENDING PHYSICIAN Nurse Practitioner Family
DX: C50.919 Malignant neoplasm of unspecified site of unspecified female breast (principal); C78.2 Secondary malignant neoplasm of pleura; E87.6 Hypokalemia
CPT/HCPCS: 36415; 82947

== ENCOUNTER → 2025-08-13 13:54 | Outpatient (REF) | payer MEDICARE, OTHER, SELFPAY | LOC: HWRAD 13:54 | PROVIDERS: ATTENDING PHYSICIAN Student in an Organized Health Care Education/Training Program; FAMILY PHYSICIAN Internal Medicine Geriatric Medicine | DX: R06.02 Shortness of breath (principal) | CPT/HCPCS: 71250 ==